=== PATIENT | male | born 1945 | race Caucasian/White ===

== ENCOUNTER 2021-10-02 06:01 | Outpatient (REF) | payer MEDICARE, SELFPAY ==
[2021-10-02 12:07] LABS: Alanine Aminotransferase 26 U/L (0-40); Albumin Level 4.1 g/dL (3.5-5.0); Alkaline Phosphatase 85 U/L (39-117); Anion Gap 15 (12-20); Aspartate Amino Transferase 18 U/L (5-37); Bilirubin Total 0.7 mg/dL (0.0-1.0); Blood Urea Nitrogen 13 mg/dL (9-16); Carbon Dioxide 26 mmol/L (22-29); Chloride 102 mmol/L (96-108); Cholesterol 136 mg/dL; Estimated Glomerular Filt Rate > 60; Glucose Fasting 137 mg/dL (60-99); HDL Cholesterol 38 mg/dL; LDL Cholesterol Calculated 83 mg/dl; Sodium 139 mmol/L (135-145); Total Protein 6.7 g/dL (6.5-8.0); Triglycerides 78 mg/dL
[2021-10-02 12:10] LABS: Prostate Specific Antigen Scr 1.09 ng/mL (<0.05-4.0); TSH reflex Free T4 6.15 uIU/mL (0.32-4.0)
== END 2021-10-02 06:02 | disposition home or self-care (01) ==
LOC: HO.HMGCLDS 06:01
PROVIDERS: PCP Nurse Practitioner Family; Visit Provider Nurse Practitioner Family
DX: Z00.00 Encounter for general adult medical examination without abnormal findings (principal); Z12.5 Encounter for screening for malignant neoplasm of prostate
CPT/HCPCS: 36415; 80053; 80061; 84153; 84439; 84443

== ENCOUNTER 2021-10-10 06:03 | Outpatient (REF) | payer MEDICARE, SELFPAY ==
[2021-10-10 11:51] LABS: Estimated Average Glucose 183 mg/dL
[2021-10-10 12:04] LABS: TSH reflex Free T4 3.78 uIU/mL (0.32-4.0)
[2021-10-13 17:02] LABS: Thyroid Peroxidase Antibodies 1 IU/mL (<9)
== END 2021-10-10 06:04 | disposition home or self-care (01) ==
LOC: HO.HMGCLDS 06:03
PROVIDERS: PCP Nurse Practitioner Family; Visit Provider Nurse Practitioner Family
DX: R73.01 Impaired fasting glucose (principal); R94.6 Abnormal results of thyroid function studies
CPT/HCPCS: 36415; 83036; 84443; 86376

== ENCOUNTER 2022-02-12 06:00 | Outpatient (REF) | payer MEDICARE, SELFPAY ==
[2022-02-12 11:31] LABS: Appearance Urine CLEAR; Color Urine YELLOW; Glucose Urine UA 100 MG/DL (NEG); Leukocyte Esterase Urine NEG (NEG); Nitrite Urine NEG (NEG); PH 5.5 (5.0-8.0); Specific Gravity - Urine >= 1.030 (1.005-1.025); Urine Blood NEG (NEG); Urine Ketones NEG (NEG); Urine Protein NEG (NEG-TRACE)
[2022-02-12 11:46] LABS: Alanine Aminotransferase 20 U/L (0-40); Albumin Level 3.9 g/dL (3.5-5.0); Alkaline Phosphatase 78 U/L (39-117); Anion Gap 10 (12-20); Aspartate Amino Transferase 17 U/L (5-37); Bilirubin Total 0.6 mg/dL (0.0-1.0); Blood Urea Nitrogen 22 mg/dL (9-16); Carbon Dioxide 28 mmol/L (22-29); Chloride 102 mmol/L (96-108); Cholesterol 138 mg/dL; Estimated Glomerular Filt Rate > 60; Glucose Fasting 158 mg/dL (60-99); HDL Cholesterol 36 mg/dL; LDL Cholesterol Calculated 87 mg/dl; Potassium 4.3 mmol/L (3.3-5.1); Sodium 136 mmol/L (135-145); Total Protein 6.6 g/dL (6.5-8.0); Triglycerides 76 mg/dL
[2022-02-12 11:49] LABS: TSH reflex Free T4 5.04 uIU/mL (0.32-4.0)
[2022-02-12 11:53] LABS: Estimated Average Glucose 174 mg/dL; Hemoglobin A1c % 7.7 %
[2022-02-12 11:58] LABS: Creatinine Urine 151.22 mg/dL; Microalbum/Creatinine Ratio Ur 8.5 ug/mg cr
[2022-02-12 13:16] LABS: Free T4 (Free Thyroxine) 0.89 ng/dL (0.71-1.85)
== END 2022-02-12 06:01 | disposition home or self-care (01) ==
LOC: HO.HMGCLDS 06:00
PROVIDERS: Visit Provider Nurse Practitioner Family
DX: Z00.00 Encounter for general adult medical examination without abnormal findings (principal); E11.9 Type 2 diabetes mellitus without complications
CPT/HCPCS: 36415; 80053; 80061; 81003; 82043; 83036; 84439; 84443

== ENCOUNTER 2022-07-21 06:00 | Outpatient (REF) | payer MEDICARE, SELFPAY ==
[2022-07-21 11:23] LABS: MANUAL DIFF FLAG NO
[2022-07-21 11:30] LABS: Basophils Percent Auto 0.7 % (0-2); Eosinophils Absolute Auto 0.1 X10*3/uL (0.0-0.4); Eosinophils Percent Auto 1.8 % (0-4); Hematocrit 45.4 % (42.0-52.0); Hemoglobin 14.6 g/dl (14.0-18.0); Imm Gran Abs Auto 0.02 X10*3/uL (0.00-0.03); Imm Gran Pct Auto 0.4 % (0.0-0.4); Lymphocytes Absolute Auto 1.3 X10*3/uL (1.2-4.9); Mean Corpuscular HGB Conc 32.2 g/dl (31.0-36.0); Mean Corpuscular Hemoglobin 31.5 pg (27.0-33.0); Mean Corpuscular Volume 98.1 fL (80.0-98.0); Mean Platelet Volume 11.7 fL (9.4-12.4); Monocytes Absolute Auto 0.6 X10*3/uL (0.1-1.2); Neutrophils Absolute Auto 3.5 x10*3/uL (2.0-8.3); Neutrophils Percent Auto 64.1 % (45-73); Platelet Count 227 X10*3/uL (160-400); Red Blood Count 4.63 X10*6/uL (4.60-5.80); Red Cell Distribution Width 13.3 % (11.0-16.0); White Blood Count 5.5 X10*3/uL (4.8-10.8)
[2022-07-21 11:56] LABS: Alanine Aminotransferase 15 U/L (0-40); Albumin Level 4.2 g/dL (3.5-5.0); Alkaline Phosphatase 80 U/L (39-117); Anion Gap 14 (12-20); Aspartate Amino Transferase 17 U/L (5-37); Bilirubin Total 0.7 mg/dL (0.0-1.0); Blood Urea Nitrogen 17 mg/dL (9-16); Calcium 9.1 mg/dL (8.4-10.2); Carbon Dioxide 27 mmol/L (22-29); Chloride 103 mmol/L (96-108); Cholesterol 140 mg/dL; Estimated Glomerular Filt Rate > 60; Glucose Fasting 119 mg/dL (60-99); HDL Cholesterol 41 mg/dL; LDL Cholesterol Calculated 82 mg/dl; Potassium 4.1 mmol/L (3.3-5.1); Sodium 140 mmol/L (135-145); Total Protein 6.6 g/dL (6.5-8.0); Triglycerides 86 mg/dL
[2022-07-21 12:00] LABS: Appearance Urine Clear; Color Urine Yellow; Glucose Urine UA Negative (Negative); Leukocyte Esterase Urine Small (1+) (Negative); Nitrite Urine Negative (Negative); PH 5.5 (5.0-9.0); Specific Gravity - Urine 1.025 (1.005-1.025); UMIC TRIGGER UACC YES; Urine Blood Negative (Negative); Urine Ketones Trace mg/dL (Negative); Urine Protein Negative (Neg-Trace)
[2022-07-21 12:07] LABS: TSH reflex Free T4 4.83 uIU/mL (0.32-4.0)
[2022-07-21 12:08] LABS: Estimated Average Glucose 146 mg/dL; Hemoglobin A1c % 6.7 %
[2022-07-21 12:27] LABS: Bacteria Urine None Seen (None Seen); Hyaline Casts Urine 0-2 /LPF (0-2); RBC Urine 0-2 /HPF (0-2); Squamous Epithelial Cell Urine 0-2 /HPF (0-2); UACC Culture Trigger YES; WBC Urine 0-5 /HPF (0-5)
== END 2022-07-21 06:01 | disposition home or self-care (01) ==
LOC: HO.HMGCLDS 06:00
PROVIDERS: PCP Nurse Practitioner Family; Visit Provider Nurse Practitioner Family
DX: E11.9 Type 2 diabetes mellitus without complications (principal)
CPT/HCPCS: 36415; 80053; 80061; 81001; 81003; 83036; 84439; 84443; 85025; 87086

== ENCOUNTER 2022-09-21 06:00 | Outpatient (REF) | payer MEDICARE, SELFPAY ==
[2022-09-21 13:02] LABS: TSH reflex Free T4 5.13 uIU/mL (0.32-4.0)
[2022-09-21 13:53] LABS: Free T4 (Free Thyroxine) 0.97 ng/dL (0.71-1.85)
[2022-09-23 04:01] LABS: Thyroid Peroxidase Antibodies 1 IU/mL (<9)
== END 2022-09-21 06:01 | disposition home or self-care (01) ==
LOC: HO.HMGCLDS 06:00
PROVIDERS: PCP Nurse Practitioner Family; Visit Provider Nurse Practitioner Family
DX: R79.89 Other specified abnormal findings of blood chemistry (principal)
CPT/HCPCS: 36415; 84439; 84443; 86376

== ENCOUNTER 2022-12-07 06:03 | Outpatient (REF) | payer MEDICARE, SELFPAY ==
[2022-12-07 11:21] LABS: Appearance Urine Clear; Color Urine Yellow; Glucose Urine UA Negative (Negative); Leukocyte Esterase Urine Small (1+) (Negative); Nitrite Urine Negative (Negative); PH 5.5 (5.0-9.0); Specific Gravity - Urine 1.015 (1.005-1.025); UMIC TRIGGER UACC YES; Urine Blood Negative (Negative); Urine Ketones Negative (Negative); Urine Protein Negative (Neg-Trace)
[2022-12-07 11:26] LABS: Bacteria Urine None Seen (None Seen); Hyaline Casts Urine 0-2 /LPF (0-2); RBC Urine 0-2 /HPF (0-2); Squamous Epithelial Cell Urine 0-2 /HPF (0-2); UACC Culture Trigger YES
[2022-12-07 11:36] LABS: MANUAL DIFF FLAG NO
[2022-12-07 11:47] LABS: Basophils Percent Auto 0.7 % (0-2); Eosinophils Absolute Auto 0.1 X10*3/uL (0.0-0.4); Eosinophils Percent Auto 1.4 % (0-4); Hematocrit 43.7 % (42.0-52.0); Hemoglobin 14.3 g/dl (14.0-18.0); Imm Gran Abs Auto 0.01 X10*3/uL (0.00-0.03); Imm Gran Pct Auto 0.2 % (0.0-0.4); Lymphocytes Absolute Auto 1.1 X10*3/uL (1.2-4.9); Lymphocytes Percent Auto 20.2 % (20-40); Mean Corpuscular HGB Conc 32.7 g/dl (31.0-36.0); Mean Corpuscular Hemoglobin 32.3 pg (27.0-33.0); Mean Corpuscular Volume 98.6 fL (80.0-98.0); Mean Platelet Volume 12.2 fL (9.4-12.4); Monocytes Absolute Auto 0.6 X10*3/uL (0.1-1.2); Monocytes Percent Auto 9.8 % (2-11); Neutrophils Absolute Auto 3.8 x10*3/uL (2.0-8.3); Neutrophils Percent Auto 67.7 % (45-73); Platelet Count 223 X10*3/uL (160-400); Red Blood Count 4.43 X10*6/uL (4.60-5.80); Red Cell Distribution Width 13.2 % (11.0-16.0); White Blood Count 5.6 X10*3/uL (4.8-10.8)
[2022-12-07 12:40] LABS: Alanine Aminotransferase 16 U/L (0-40); Albumin Level 3.9 g/dL (3.5-5.0); Alkaline Phosphatase 80 U/L (39-117); Anion Gap 13 (12-20); Aspartate Amino Transferase 15 U/L (5-37); Blood Urea Nitrogen 17 mg/dL (9-16); Calcium 8.8 mg/dL (8.4-10.2); Carbon Dioxide 27 mmol/L (22-29); Chloride 104 mmol/L (96-108); Cholesterol 142 mg/dL; Estimated Glomerular Filt Rate > 60; Glucose Fasting 110 mg/dL (60-99); HDL Cholesterol 45 mg/dL; LDL Cholesterol Calculated 86 mg/dl; Sodium 140 mmol/L (135-145); TSH reflex Free T4 5.53 uIU/mL (0.32-4.0); Total Protein 6.3 g/dL (6.5-8.0); Triglycerides 59 mg/dL
[2022-12-07 13:11] LABS: Free T4 (Free Thyroxine) 0.91 ng/dL (0.71-1.85)
== END 2022-12-07 06:04 | disposition home or self-care (01) ==
LOC: HO.HMGCLDS 06:03
PROVIDERS: PCP Nurse Practitioner Family; Visit Provider Nurse Practitioner Family
DX: Z12.5 Encounter for screening for malignant neoplasm of prostate (principal); E11.9 Type 2 diabetes mellitus without complications; R82.90 Unspecified abnormal findings in urine
CPT/HCPCS: 36415; 80053; 80061; 81001; 84153; 84439; 84443; 85025; 87086

== ENCOUNTER 2023-04-05 06:05 | Outpatient (REF) | payer MEDICARE, SELFPAY ==
[2023-04-05 11:12] LABS: MANUAL DIFF FLAG NO
[2023-04-05 11:28] LABS: Appearance Urine Clear; Color Urine Yellow; Glucose Urine UA Negative (Negative); Leukocyte Esterase Urine Small (1+) (Negative); Nitrite Urine Negative (Negative); PH 5.5 (5.0-9.0); Specific Gravity - Urine 1.025 (1.005-1.025); UMIC TRIGGER UACC YES; Urine Blood Negative (Negative); Urine Ketones Negative (Negative); Urine Protein Negative (Neg-Trace)
[2023-04-05 11:31] LABS: Basophils Percent Auto 0.8 % (0-2); Eosinophils Absolute Auto 0.1 X10*3/uL (0.0-0.4); Eosinophils Percent Auto 1.7 % (0-4); Hematocrit 41.6 % (42.0-52.0); Hemoglobin 13.5 g/dl (14.0-18.0); Imm Gran Abs Auto 0.05 X10*3/uL (0.00-0.03); Imm Gran Pct Auto 1.1 % (0.0-0.4); Lymphocytes Percent Auto 21.8 % (20-40); Mean Corpuscular HGB Conc 32.5 g/dl (31.0-36.0); Mean Corpuscular Volume 98.6 fL (80.0-98.0); Mean Platelet Volume 11.9 fL (9.4-12.4); Monocytes Absolute Auto 0.5 X10*3/uL (0.1-1.2); Monocytes Percent Auto 11.4 % (2-11); Neutrophils Percent Auto 63.2 % (45-73); Platelet Count 191 X10*3/uL (160-400); Red Blood Count 4.22 X10*6/uL (4.60-5.80); Red Cell Distribution Width 13.9 % (11.0-16.0); White Blood Count 4.7 X10*3/uL (4.8-10.8)
[2023-04-05 11:40] LABS: Bacteria Urine None Seen (None Seen); Hyaline Casts Urine 0-2 /LPF (0-2); RBC Urine 0-2 /HPF (0-2); Squamous Epithelial Cell Urine 0-2 /HPF (0-2); UACC Culture Trigger YES; WBC Urine 0-5 /HPF (0-5)
[2023-04-05 12:06] LABS: Alanine Aminotransferase 10 U/L (0-40); Albumin Level 3.8 g/dL (3.5-5.0); Alkaline Phosphatase 66 U/L (39-117); Anion Gap 11 (12-20); Aspartate Amino Transferase 16 U/L (5-37); Bilirubin Total 1.1 mg/dL (0.0-1.0); Blood Urea Nitrogen 18 mg/dL (9-16); Calcium 8.8 mg/dL (8.4-10.2); Carbon Dioxide 28 mmol/L (22-29); Chloride 105 mmol/L (96-108); Cholesterol 128 mg/dL; Estimated Glomerular Filt Rate > 60; Glucose Fasting 107 mg/dL (60-99); HDL Cholesterol 43 mg/dL; LDL Cholesterol Calculated 76 mg/dl; Potassium 3.8 mmol/L (3.3-5.1); Sodium 140 mmol/L (135-145); Total Protein 6.2 g/dL (6.5-8.0); Triglycerides 48 mg/dL
[2023-04-05 12:08] LABS: TSH reflex Free T4 3.78 uIU/mL (0.32-4.0)
[2023-04-05 12:13] LABS: Microalbum/Creatinine Ratio Ur 7.7 ug/mg cr
== END 2023-04-05 06:06 | disposition home or self-care (01) ==
LOC: HO.HMGCLDS 06:05
PROVIDERS: PCP Nurse Practitioner Family; Visit Provider Nurse Practitioner Family
DX: E11.9 Type 2 diabetes mellitus without complications (principal); R79.89 Other specified abnormal findings of blood chemistry; D64.9 Anemia, unspecified; R82.90 Unspecified abnormal findings in urine
CPT/HCPCS: 36415; 80053; 80061; 81001; 82043; 84443; 85025; 87086

== ENCOUNTER 2023-04-21 06:01 | Outpatient (REF) | payer MEDICARE, SELFPAY ==
[2023-04-21 11:16] LABS: MANUAL DIFF FLAG NO
[2023-04-21 11:26] LABS: Basophils Absolute Auto 0.1 X10*3/uL (0.0-0.2); Basophils Percent Auto 0.9 % (0-2); Eosinophils Absolute Auto 0.1 X10*3/uL (0.0-0.4); Eosinophils Percent Auto 1.4 % (0-4); Hematocrit 42.6 % (42.0-52.0); Hemoglobin 13.9 g/dl (14.0-18.0); Imm Gran Abs Auto 0.02 X10*3/uL (0.00-0.03); Imm Gran Pct Auto 0.4 % (0.0-0.4); Immature Retic Fraction 10.9 % (2.3-13.4); Lymphocytes Percent Auto 18.8 % (20-40); Mean Corpuscular HGB Conc 32.6 g/dl (31.0-36.0); Mean Corpuscular Hemoglobin 32.6 pg (27.0-33.0); Mean Platelet Volume 12.4 fL (9.4-12.4); Monocytes Absolute Auto 0.5 X10*3/uL (0.1-1.2); Monocytes Percent Auto 9.1 % (2-11); Neutrophils Absolute Auto 3.8 x10*3/uL (2.0-8.3); Neutrophils Percent Auto 69.4 % (45-73); Platelet Count 207 X10*3/uL (160-400); Red Blood Count 4.26 X10*6/uL (4.60-5.80); Retic HGB Equivalent 37.6 pg (30.0-35.0); Reticulocyte Percent 1.5 % (0.5-1.8); Reticulocytes Absolute 0.062 X10*6/uL (0.026-0.095); White Blood Count 5.5 X10*3/uL (4.8-10.8)
[2023-04-21 11:53] LABS: Iron 109 mcg/dL (45-160); Percent Iron Saturation 43 % (15-50); Total Iron Binding Capacity 251 mcg/dL (228-428); Unsaturated Iron Binding 142 ug/dL
[2023-04-21 12:08] LABS: Folate 8.2 ng/mL (> or = 4.0); Vitamin B12 324 pg/mL (200-900)
[2023-04-21 12:12] LABS: Ferritin 121 ng/mL (20-250)
== END 2023-04-21 06:02 | disposition home or self-care (01) ==
LOC: HO.HMGCLDS 06:01
PROVIDERS: PCP Nurse Practitioner Family; Visit Provider Nurse Practitioner Family
DX: D64.9 Anemia, unspecified (principal); E11.9 Type 2 diabetes mellitus without complications; R79.89 Other specified abnormal findings of blood chemistry
CPT/HCPCS: 36415; 82607; 82728; 82746; 83540; 85025; 85045

== ENCOUNTER 2023-08-18 13:26 | Outpatient (AMB) | payer MEDICARE, SELFPAY ==
--- NOTE | 2023-08-18 13:31 | MHC.PC.OV ---
Vital Signs 08/18/23 13:35 Height 5 ft 11 in Weight 187 lb BMI 26.1 BP 108/64 Blood Pressure Location Rt brachial Position Sitting Pulse 110 H Pulse Source Pulse Oximeter Pulse Oximetry (%) 100 Oxygen Delivery Method Room Air Intake Visit Reasons: PE/overdue, last 02/11/22 Allergies No Known Allergies Allergy (Verified 08/18/23 13:35) Medication List - Last Reviewed 08/18/23 by CARLOS MANUEL Cade Alcohol Prep Pads (alcohol swabs) topical 3 to 4 times a day; 12 months NS alcohol swabs (Alcohol Prep Pads) 1 pad topical BID 90 days aspirin 81 mg PO DAILY atorvastatin 80 mg PO DAILY blood sugar diagnostic ([employer] Verio test strips) Use to check blood sugar twice daily: fasting blood sugar and random during the day blood-glucose meter ([employer] Verio IQ Meter) Use to check blood sugar twice daily: fasting blood sugar and random during the day lancets ([employer] Delica Plus Lancet) USE TO CHECK BLOOD SUGAR TWICE DAILY lisinopril 10 mg PO DAILY 90 days metformin ER 500 mg PO BID 90 days metoprolol tartrate 12.5 mg (1/2 x 25 mg) PO BID warfarin 2.5 mg PO 3XW Tobacco use date assessed: 03/25/23 Fall risk assessment: No Falls in past year Last assessed Fall Risk: 08/18/23 Dental Screening Dental Screen Date: 08/18/23 Did you have a dental visit in the last 12 months?: No Did you have a dental problem in the last 6 months where you did not have access to dental care?: No Was dental information given to patient?: No HPI PE/overdue, last 02/11/22 HPI Details Pt is here for a PE. Will order labs. PSA is up to date. Pt is a diabetic, on an OMER and a statin. A1C in office today is 6.5. Microalbumin is up to date. Denies polyuria, polydipsia, and neuropathy. Pt denies any signs and symptoms of hypoglycemia and does know how to correct it. Pt reports that his blood sugar has been around 104. Pt reports swelling of his bilat feet that he noticed earlier this week. He also reports shortness of breath with exertion. Will order BNP, TSH, CMP, CBC, and chest XR. Will also send furosemide 20mg x5 days. Pt has an echo scheduled for 08/23. Pt last saw his experimental worker last week. They are aware of his RVR and increased his metoprolol to 50mg bid. HR today is 110, according to note from cardiology his pulse was similar. Pt is in no acute distress. After speaking with pt's experimental worker I am sending pt to the ER, report called in. [facility] Medical History Arthritis CAD (coronary artery disease) Hypertension Left leg injury Surgical History S/P drug eluting coronary stent placement Hx of tonsillectomy Family History Mother Cancer Social History Housing: Apartment Alcohol intake: former Patient Tobacco Use Status: Former Tobacco user Years Smoked: 4 yrs e-Cigarette/Vaping Use: Never Used Second Hand Smoke Exposure: No service: No Current occupational status: retired Cognitive needs: No Hearing needs: No Vision needs: No Questionnaire Thrive Questionnaire Date Thrive assessed: 11/23/22 HAROON-7 AMB Questionnaire HAROON-7 Date HAROON - 7 assessed: 11/23/22 Source: Developed by Drs. Yaakov Marti, Dawna Buckley, Virgilio Lepe and colleagues, with an educational pb from [employer]. Review of Systems Const Denies chills and Denies fever(s) Eyes Denies blurry vision ENT Denies vertigo, Denies dizziness and Denies sore throat Card Denies chest pain at rest, Denies chest pain with activity, Denies diaphoresis, Denies dyspnea and Denies dyspnea on exertion Resp Denies cough, Denies dyspnea, Denies dyspnea on exertion and Denies wheezing GI Denies abdominal pain, Denies melena, Denies hematochezia, Denies constipation, Denies diarrhea and Denies loose stools Denies hematuria Musc Denies numbness and Denies tingling Skin/Breast Denies lesions Neuro Denies vertigo, Denies dizziness, Denies numbness and Denies tingling Psych Denies anxiety, Denies depression, Denies homicidal ideation, Denies suicidal ideation and Denies other (substance abuse) Aller/Immun Denies wheezing Physical exam (Primary Care) Vital Signs: Last Vital Signs Pulse 110 H 08/18/23 13:35 BP 108/64 08/18/23 13:35 Pulse Ox 100 08/18/23 13:35 Oxygen Delivery Method Room Air 08/18/23 13:35 BMI result Body Mass Index 26.1 Tobacco/Smoking Status: Tobacco use Status Tobacco use date assessed 03/25/23 08/18/23 13:32 Patient Tobacco Use Status Former Tobacco user 08/18/23 13:32 e-Cigarette/Vaping Use Never Used 08/18/23 13:32 Thrive Assessment: Date of Thrive Assessment Date Thrive assessed 11/23/22 08/18/23 13:32 Const General: cooperative Nutritional Appearance: well nourished Orientation/consciousness: patient oriented x3 HENMT Head: Yes normal to inspection, Yes normocephalic and Yes atraumatic Ears: TM's normal bilaterally Eyes General: appearance normal, both eyes and all related structures Alignment and Position: alignment normal and position normal Neck Neck: Yes normal visual inspection and Yes no lymphadenopathy Thyroid: Thyroid normal Resp Effort & Inspection: normal respiratory effort Auscultation: clear to auscultation bilaterally Cardio Rate: tachycardic (RVR) Rhythm: abnormal rhythm irregularly irregular Heart sounds: no murmurs GI Palpation (GI): Soft to palpation and nontender Auscultation: normal bowel sounds Skin Rashes: no rashes Neuro General: patient oriented x3, moves all extremities, no focal motor deficits and deep tendon reflexes 2+ bilaterally Romberg Test: Negative Extrem Other: + 1 pitting BLE Psych Appearance: grossly normal Mental Status: mental status grossly normal Speech and movement: Normal speech and movement present Affect: normal affect Attitude: cooperative Thought process: Normal thought process present Thought content: Normal thought content present Insight: Good insight present (Psych) Judgement: Good judgement present (Psych) Results AMB Hemoglobin A1c AMB Hemoglobin A1c 6.5 % Last Edit by CARLOS MANUEL Cade on 08/18/23 13:54 Results Reviewed Results Reviewed: Laboratory Last Values Hgb A1c (Clinic) 6.5 % (4.0-6.0) H 08/18/23 13:53 Assessment and Plan Assessment & Plan (1) Physical exam: Code(s): Z00.00 - Encounter for general adult medical examination without abnormal findings Plan: Labs ordered (2) Swelling of both lower extremities: Code(s): M79.89 - Other specified soft tissue disorders Plan: Labs and chest XR ordered, lasix sent, sending to ER (3) SOB (shortness of breath): Code(s): R06.02 - Shortness of breath Plan: Labs and chest XR ordered, furosemide sent, sending to ER (4) Overgrown toenails: Code(s): L60.2 - Onychogryphosis Plan: Referred to podiatry Plan The patient agreed to the use of a medical billing coordinator for this encounter. Scribed for BASSAM Zhao by Alissa Kent medical billing coordinator, on 08/18/2023 at 13:45 EST Orders: Orders Comprehensive [place]. Panel Fast Today Z00.00 - Encounter for general adult medical examination without abnormal findings TSH reflex Free T4 Today Z00.00 - Encounter for general adult medical examination without abnormal findings UA CC w/rflx Micro + Cult Today Z00.00 - Encounter for general adult medical examination without abnormal findings Lipid Panel Today Z00.00 - Encounter for general adult medical examination without abnormal findings XR chest 2V Today M79.89 - Other specified soft tissue disorders, R06.02 - Shortness of breath Complete Blood Count Auto Diff Today Z00.00 - Encounter for general adult medical examination without abnormal findings B Type Natriuretic Peptide Today M79.89 - Other specified soft tissue disorders AMB Hemoglobin A1c Today Z13.9 - Encounter for screening, unspecified Referrals Podiatry Referral L60.2 - Onychogryphosis Medications: New furosemide 20 mg PO DAILY 5 days 5 tabs 0RF Coding Level of Care Code Est Pt Prev Care >65y(51918) Diagnoses Physical exam Z00.00 Swelling of both lower extremities M79.89 SOB (shortness of breath) R06.02 Overgrown toenails L60.2
[2023-08-18 13:35] VITALS: BP 108/64; PULSE 110; O2SAT 100; BMI 26.1
== END 2023-08-18 14:37 | disposition home or self-care (01) ==
PROVIDERS: PCP Nurse Practitioner Family; Visit Provider Nurse Practitioner Family
DX: Z00.00 Encounter for general adult medical examination without abnormal findings (principal); M79.89 Other specified soft tissue disorders; R06.02 Shortness of breath; L60.2 Onychogryphosis; E11.9 Type 2 diabetes mellitus without complications
CPT/HCPCS: 83036; 99397

== ENCOUNTER 2023-08-18 14:48 | Outpatient (REF) | payer MEDICARE, SELFPAY ==
--- NOTE | ~2023-08-18 | XR_ITS ---
EXAMINATION: XR CHEST CLINICAL INFORMATION: Other specified soft tissue disorders. COMPARISON: None available. TECHNIQUE: Frontal and lateral views of the chest were obtained. FINDINGS: The heart, great vessels, pulmonary vasculature and mediastinum are stable. There are small to moderate bilateral pleural effusions. No infiltrate, effusion or pneumothorax is seen. There is no acute osseous abnormalities. XR/XR chest 2V IMPRESSION: 1. There are small to moderate bilateral pleural effusions. 2. No focal infiltrate or congestive heart failure is seen.
[2023-08-18 15:06] LABS: MANUAL DIFF FLAG NO
[2023-08-18 15:56] LABS: B Type Natriuretic Peptide 433 pg/mL (<100)
[2023-08-18 15:57] LABS: Basophils Absolute Auto 0.1 X10*3/uL (0.0-0.2); Basophils Percent Auto 1.3 % (0-2); Eosinophils Absolute Auto 0.1 X10*3/uL (0.0-0.4); Eosinophils Percent Auto 1.1 % (0-4); Imm Gran Abs Auto 0.02 X10*3/uL (0.00-0.03); Imm Gran Pct Auto 0.3 % (0.0-0.4); Lymphocytes Absolute Auto 1.1 X10*3/uL (1.2-4.9); Lymphocytes Percent Auto 17.6 % (20-40); Mean Corpuscular HGB Conc 32.6 g/dl (31.0-36.0); Mean Corpuscular Hemoglobin 32.3 pg (27.0-33.0); Mean Corpuscular Volume 98.9 fL (80.0-98.0); Mean Platelet Volume 11.9 fL (9.4-12.4); Monocytes Absolute Auto 0.7 X10*3/uL (0.1-1.2); Monocytes Percent Auto 11.3 % (2-11); Neutrophils Absolute Auto 4.4 x10*3/uL (2.0-8.3); Neutrophils Percent Auto 68.4 % (45-73); Platelet Count 239 X10*3/uL (160-400); Red Blood Count 4.65 X10*6/uL (4.60-5.80); Red Cell Distribution Width 15.1 % (11.0-16.0); White Blood Count 6.4 X10*3/uL (4.8-10.8)
[2023-08-18 16:00] LABS: Alanine Aminotransferase 44 U/L (0-40); Albumin Level 4.2 g/dL (3.5-5.0); Alkaline Phosphatase 108 U/L (39-117); Anion Gap 16 (12-20); Aspartate Amino Transferase 31 U/L (5-37); Bilirubin Total 1.2 mg/dL (0.0-1.0); Blood Urea Nitrogen 17 mg/dL (9-16); Calcium 9.2 mg/dL (8.4-10.2); Carbon Dioxide 21 mmol/L (22-29); Chloride 105 mmol/L (96-108); Cholesterol 116 mg/dL (<200); Estimated Glomerular Filt Rate > 60; Glucose Fasting 132 mg/dL (60-99); HDL Cholesterol 44 mg/dL (>40); LDL Cholesterol Calculated 59 mg/dL (<100); Potassium 4.2 mmol/L (3.3-5.1); Sodium 138 mmol/L (135-145); Total Protein 7.1 g/dL (6.5-8.0); Triglycerides 66 mg/dL (<150)
[2023-08-18 16:14] LABS: TSH reflex Free T4 4.57 uIU/mL (0.32-4.0)
[2023-08-18 16:48] LABS: Free T4 (Free Thyroxine) 1.05 ng/dL (0.71-1.85)
== END 2023-08-18 14:49 | disposition home or self-care (01) ==
LOC: HO.LAB 14:48
PROVIDERS: PCP Nurse Practitioner Family; Visit Provider Nurse Practitioner Family
DX: Z00.00 Encounter for general adult medical examination without abnormal findings (principal); M79.89 Other specified soft tissue disorders; R06.02 Shortness of breath; R94.6 Abnormal results of thyroid function studies
CPT/HCPCS: 36415; 71046; 80053; 80061; 83880; 84439; 84443; 85025

== ENCOUNTER 2023-09-28 14:41 | Outpatient (AMB) | payer MEDICARE, SELFPAY ==
--- NOTE | 2023-09-28 14:44 | MHC.PC.OV ---
Vital Signs 09/28/23 14:46 Height 5 ft 11 in Weight 157 lb BMI 21.9 BP 118/72 Blood Pressure Location Rt brachial Position Sitting Pulse 58 Pulse Source Pulse Oximeter Pulse Oximetry (%) 100 Oxygen Delivery Method Room Air Intake Visit Reasons: HDF ~ Post hospital discharge FU Allergies No Known Allergies Allergy (Verified 09/28/23 15:24) Medication List - Last Reconciled 09/28/23 by SERGIO Banda- Alcohol Prep Pads (alcohol swabs) topical 3 to 4 times a day; 12 months NS alcohol swabs (Alcohol Prep Pads) 1 pad topical BID 90 days aspirin 81 mg PO DAILY atorvastatin 80 mg PO DAILY blood sugar diagnostic ([employer] Verio test strips) Use to check blood sugar twice daily: fasting blood sugar and random during the day blood-glucose meter ([employer] Verio IQ Meter) Use to check blood sugar twice daily: fasting blood sugar and random during the day furosemide 40 mg PO DAILY lancets ([employer]Touch Delica Plus Lancet) USE TO CHECK BLOOD SUGAR TWICE DAILY losartan 12.5 mg PO DAILY metformin ER 500 mg PO BID 90 days metoprolol succinate ER 50 mg PO DAILY warfarin 2.5 mg PO 3XW Tobacco use date assessed: 03/25/23 HPI HDF ~ Post hospital discharge FU HPI Details Pt was seen in the ER on 08/19 c/o shortness of breath and lower extremity edema. Pt's presentation was concerning for new onset CHF, volume overload. Bedside US showed evidence of bilat pleural effusions as well as a dilated IVC consistent with volume overload. Pt was given IV diuretics and metoprolol. EKG showed afib with RVR, rate 127. Chest XR showed normal cardiac silhouette, blunting of the costophrenic angles with bilat pleural effusions. proBNP was elevated at 2700. Troponin was elevated at 21, likely elevated in the setting of demand ischemia. Heart rate improved after IV and PO metoprolol. Echo showed EF of 25-35%. Pt underwent cardioversion on 08/23 with reversion to NSR meds titrated accordingly. Low doses of beta-sharan and ARB were started, plan to uptitrate and transition to entresto outpatient. Pt's hospital course was complicated by LISSETTE likely in setting of edema, resolved with lasix. Course was also complicated by acute urinary retention. Urology was consulted and a felder was placed. He was started on flomax and pyridoxine. Pt was d/c with felder with instructions to follow up with urology. Cytology was also sent. Pt was d/c on metoprolol, losartan, lasix, and lovenox. Pt's lisinopril was stopped. He will be following up with cardiology on 10/05. Pt is also following up with urology. He denies any urinary symptoms. Denies fever, chills, chest pain, and shortness of breath. He reports feeling well, and his watching his weight at home. Will await follow up notes from cardiology [facility] Medical History Arthritis CAD (coronary artery disease) Hypertension Left leg injury Surgical History S/P drug eluting coronary stent placement Hx of tonsillectomy Family History Mother Cancer Social History Housing: Apartment Alcohol intake: former Patient Tobacco Use Status: Former Tobacco user Years Smoked: 4 yrs e-Cigarette/Vaping Use: Never Used Second Hand Smoke Exposure: No service: No Current occupational status: retired Cognitive needs: No Hearing needs: No Vision needs: No Questionnaire Thrive Questionnaire Date Thrive assessed: 11/23/22 HAROON-7 AMB Questionnaire HAROON-7 Date HAROON - 7 assessed: 11/23/22 Source: Developed by Drs. Yaakov Marti, Dawna Buckley, Virgilio Lepe and colleagues, with an educational pb from [employer]. Review of Systems Const Reports as per HPI Physical exam (Primary Care) Vital Signs: Last Vital Signs Pulse 58 09/28/23 14:46 BP 118/72 09/28/23 14:46 Pulse Ox 100 09/28/23 14:46 Oxygen Delivery Method Room Air 09/28/23 14:46 BMI result Body Mass Index 21.9 Tobacco/Smoking Status: Tobacco use Status Tobacco use date assessed 03/25/23 09/28/23 14:45 Patient Tobacco Use Status Former Tobacco user 09/28/23 14:45 e-Cigarette/Vaping Use Never Used 09/28/23 14:45 Thrive Assessment: Date of Thrive Assessment Date Thrive assessed 11/23/22 09/28/23 14:45 Const General: cooperative Orientation/consciousness: patient oriented x3 Resp Other: very faint crackle to right base, otherwise fairly clear throughout Effort & Inspection: normal respiratory effort Cardio Rate: regular rate Rhythm: regular rhythm Heart sounds: S1 normal heart sound present and S2 normal heart sound present Neuro General: patient oriented x3 Extrem Right lower extremity: no edema Left lower extremity: no edema Psych Appearance: grossly normal Mental Status: mental status grossly normal Speech and movement: Normal speech and movement present Affect: normal affect Attitude: cooperative Thought process: Normal thought process present Thought content: Normal thought content present Insight: Good insight present (Psych) Judgement: Good judgement present (Psych) Assessment and Plan Assessment & Plan (1) CHF (congestive heart failure): Code(s): I50.9 - Heart failure, unspecified Plan: Labs ordered, following up with cardiology next week (2) Afib: Code(s): I48.91 - Unspecified atrial fibrillation Plan: Labs ordered Plan The patient agreed to the use of a medical staff services manager for this encounter. Scribed for BASSAM Zhao by Alissa Kent medical staff services manager, on 09/28/2023 at 15:20 EST. Orders: Orders Complete Blood Count Auto Diff Today I48.91 - Unspecified atrial fibrillation, I50.9 - Heart failure, unspecified UA CC w/rflx Micro + Cult Today I48.91 - Unspecified atrial fibrillation, I50.9 - Heart failure, unspecified B Type Natriuretic Peptide Today I48.91 - Unspecified atrial fibrillation, I50.9 - Heart failure, unspecified Comprehensive [place]. Panel Today I48.91 - Unspecified atrial fibrillation, I50.9 - Heart failure, unspecified TSH reflex Free T4 Today I48.91 - Unspecified atrial fibrillation, I50.9 - Heart failure, unspecified Medications: Discontinued metoprolol tartrate Discontinued Reason: Doctor's Order 50 mg PO BID Coding Level of Care Code Est Pt Level 4 (00298) Diagnoses CHF (congestive heart failure) I50.9 Afib I48.91
[2023-09-28 14:46] VITALS: BP 118/72; PULSE 58; O2SAT 100; BMI 21.9
== END 2023-09-28 16:57 | disposition home or self-care (01) ==
PROVIDERS: PCP Nurse Practitioner Family; Visit Provider Nurse Practitioner Family
DX: I50.9 Heart failure, unspecified (principal); I48.91 Unspecified atrial fibrillation
CPT/HCPCS: 99214

== ENCOUNTER 2023-09-29 12:18 | Outpatient (REF) | payer MEDICARE, SELFPAY ==
[2023-09-29 13:08] LABS: MANUAL DIFF FLAG NO
[2023-09-29 13:38] LABS: Basophils Absolute Auto 0.1 X10*3/uL (0.0-0.2); Eosinophils Absolute Auto 0.1 X10*3/uL (0.0-0.4); Eosinophils Percent Auto 1.3 % (0-4); Hematocrit 41.7 % (42.0-52.0); Hemoglobin 13.6 g/dl (14.0-18.0); Imm Gran Abs Auto 0.02 X10*3/uL (0.00-0.03); Imm Gran Pct Auto 0.3 % (0.0-0.4); Lymphocytes Absolute Auto 1.2 X10*3/uL (1.2-4.9); Lymphocytes Percent Auto 20.1 % (20-40); Mean Corpuscular HGB Conc 32.6 g/dl (31.0-36.0); Mean Corpuscular Hemoglobin 31.9 pg (27.0-33.0); Mean Corpuscular Volume 97.9 fL (80.0-98.0); Mean Platelet Volume 11.8 fL (9.4-12.4); Monocytes Absolute Auto 0.6 X10*3/uL (0.1-1.2); Monocytes Percent Auto 8.9 % (2-11); Neutrophils Absolute Auto 4.2 x10*3/uL (2.0-8.3); Neutrophils Percent Auto 68.4 % (45-73); Platelet Count 226 X10*3/uL (160-400); Red Blood Count 4.26 X10*6/uL (4.60-5.80); Red Cell Distribution Width 13.8 % (11.0-16.0); White Blood Count 6.2 X10*3/uL (4.8-10.8)
[2023-09-29 14:12] LABS: B Type Natriuretic Peptide 115 pg/mL (<100)
[2023-09-29 14:17] LABS: Alanine Aminotransferase 16 U/L (0-40); Alkaline Phosphatase 66 U/L (39-117); Anion Gap 13 (12-20); Aspartate Amino Transferase 22 U/L (5-37); Bilirubin Total 0.7 mg/dL (0.0-1.0); Blood Urea Nitrogen 18 mg/dL (9-16); Calcium 8.8 mg/dL (8.4-10.2); Carbon Dioxide 30 mmol/L (22-29); Chloride 101 mmol/L (96-108); Estimated Glomerular Filt Rate > 60; Glucose Random 172 mg/dL (60-115); Potassium 3.4 mmol/L (3.3-5.1); Sodium 141 mmol/L (135-145)
[2023-09-29 14:23] LABS: TSH reflex Free T4 4.77 uIU/mL (0.32-4.0)
[2023-09-29 15:00] LABS: Free T4 (Free Thyroxine) 0.86 ng/dL (0.71-1.85)
[2023-09-29 16:25] LABS: Appearance Urine Clear; Color Urine Yellow; Glucose Urine UA Negative (Negative); Leukocyte Esterase Urine Trace (Negative); Nitrite Urine Negative (Negative); UMIC TRIGGER UACC YES; Urine Blood Negative (Negative); Urine Ketones Negative (Negative); Urine Protein Negative (Neg-Trace)
[2023-09-29 16:29] LABS: Bacteria Urine None Seen (None Seen); Hyaline Casts Urine 0-2 /LPF (0-2); RBC Urine 0-2 /HPF (0-2); Squamous Epithelial Cell Urine 0-2 /HPF (0-2); WBC Urine 0-5 /HPF (0-5)
== END 2023-09-29 12:19 | disposition home or self-care (01) ==
LOC: HO.HMGCLDS 12:18
PROVIDERS: PCP Nurse Practitioner Family; Visit Provider Nurse Practitioner Family
DX: I48.91 Unspecified atrial fibrillation (principal); I50.9 Heart failure, unspecified
CPT/HCPCS: 36415; 80053; 81001; 83880; 84439; 84443; 85025

== ENCOUNTER 2023-11-18 13:45 | Outpatient (AMB) | payer MEDICARE, SELFPAY ==
--- NOTE | 2023-11-18 13:52 | MHC.PC.OV ---
Vital Signs 11/18/23 13:53 Height 5 ft 11 in Weight 170 lb 4 oz BMI 23.7 BP 110/72 Blood Pressure Location Rt brachial Position Sitting Pulse 50 Pulse Source Pulse Oximeter Pulse Oximetry (%) 98 Oxygen Delivery Method Room Air Intake Visit Reasons: 3 Month follow up Intake Note: Pt is here to go lab results Allergies No Known Allergies Allergy (Verified 11/18/23 13:55) Medication List - Last Reconciled 11/18/23 by BASSAM Banda Alcohol Prep Pads (alcohol swabs) topical 3 to 4 times a day; 12 months NS alcohol swabs (Alcohol Prep Pads) 1 pad topical BID 90 days aspirin 81 mg PO DAILY atorvastatin 80 mg PO DAILY blood sugar diagnostic ([employer] Verio test strips) Use to check blood sugar twice daily: fasting blood sugar and random during the day blood-glucose meter ([employer] Verio IQ Meter) Use to check blood sugar twice daily: fasting blood sugar and random during the day furosemide 20 mg PO Q OTHER DAY lancets ([employer] Delica Plus Lancet) USE TO CHECK BLOOD SUGAR TWICE DAILY losartan 12.5 mg PO DAILY metformin ER 500 mg PO BID 90 days metoprolol succinate ER 50 mg PO DAILY warfarin 2.5 mg PO 3XW Tobacco use date assessed: 11/18/23 Fall risk assessment: No Falls in past year Last assessed Fall Risk: 11/18/23 Dental Screening Dental Screen Date: 11/18/23 Did you have a dental visit in the last 12 months?: No Did you have a dental problem in the last 6 months where you did not have access to dental care?: No Was dental information given to patient?: No HPI 3 Month follow up HPI Details Pt is a diabetic, on an ARB and a statin. A1C in office today is 6.6. Microalbumin is up to date. Denies polyuria, polydipsia, and neuropathy. Pt denies any signs and symptoms of hypoglycemia and does know how to correct it. Eye exam is scheduled. Pt has an appointment scheduled with podiatry. [facility] Medical History Arthritis CAD (coronary artery disease) Hypertension Left leg injury Surgical History S/P drug eluting coronary stent placement Hx of tonsillectomy Family History Mother Cancer Social History Housing: Apartment Alcohol intake: former Patient Tobacco Use Status: Former Tobacco user Years Smoked: 4 yrs e-Cigarette/Vaping Use: Never Used Second Hand Smoke Exposure: No service: No Current occupational status: retired Cognitive needs: No Hearing needs: No Vision needs: No Questionnaire PHQ-9 Over the last 2 weeks, how often have you been bothered by any of the following problems? 1. Little interest or pleasure in doing things: not at all 2. Feeling down, depressed, or hopeless: not at all 3. Trouble falling or staying asleep, or sleeping too much: not at all 4. Feeling tired or having little energy: not at all 5. Poor appetite or overeating: not at all 6. Feeling bad about yourself - or that you are a failure or have let yourself or your family down: not at all 7. Trouble concentrating on things, such as reading the newspaper or watching television: not at all 8. Moving or speaking so slowly that other people could have noticed. Or the opposite - being so fidgety or restless that you have been moving around a lot more than usual: not at all 9. Thoughts that you would be better off or of hurting yourself in some way: not at all Total score: 0 Source: Developed by Drs. Yaakov Marti, Dawna Buckley, Virgilio Lepe and colleagues, with an educational pb from [employer]. Thrive Questionnaire Date Thrive assessed: 11/18/23 I am a: Patient What is your living situation today?: I have a steady place to live Within the past 12 months, did the food you bought not last and you didn't have the money to get more?: Never true Within the past 12 months, did you worry whether your food would run out before you got money to buy more?: Never true Do you have trouble paying for medicines?: No Do you have trouble getting transportation to medical appointments?: No Do you have trouble paying your heating and electricity bill?: No Do you have trouble taking care of your child, family member or friend?: No Do you have trouble with day-to-day activities such as bathing, preparing meals, shopping, managing finances, etc.?: No Are you currently unemployed and looking for a job?: No Are you interested in more education?: No THRIVE Score: 0 AUDIT C Alcohol Use Questionnaire (AUDIT-C) 1. How often do you have a drink containing alcohol?: Never Total Score: 0 Score Reviewed/Action Taken: Yes HAROON-7 AMB Questionnaire HAROON-7 Date HAROON - 7 assessed: 11/18/23 Feeling nervous, anxious, or on edge: 0 = Not at all Not being able to stop or control worryin = Not at all Worrying too much about different things: 0 = Not at all Trouble relaxin = Not at all Being so restless that it is hard to sit still: 1 = Several days Becoming easily annoyed or irritable: 0 = Not at all Feeling afraid as if something awful might happen: 0 = Not at all Total HAROON-7 score (0-4 normal; 5-9 mild; 10-14 moderate; 15-21 severe): 1 Source: Developed by Drs. Yaakov Marti, Dawna Buckley, Virgilio Lepe and colleagues, with an educational pb from [employer]. Review of Systems Const Reports as per HPI Physical exam (Primary Care) Vital Signs: Last Vital Signs Pulse 50 11/18/23 13:53 BP 110/72 11/18/23 13:53 Pulse Ox 98 11/18/23 13:53 Oxygen Delivery Method Room Air 11/18/23 13:53 BMI result Body Mass Index 23.7 Tobacco/Smoking Status: Tobacco use Status Tobacco use date assessed 11/18/23 11/18/23 13:58 Patient Tobacco Use Status Former Tobacco user 11/18/23 13:52 e-Cigarette/Vaping Use Never Used 11/18/23 13:52 PHQ-9: PHQ-9 Score PHQ-9: Total score 0 11/18/23 14:18 Thrive Assessment: Date of Thrive Assessment Date Thrive assessed 11/18/23 11/18/23 14:08 Const General: cooperative Orientation/consciousness: patient oriented x3 Resp Effort & Inspection: normal respiratory effort Auscultation: clear to auscultation bilaterally Cardio Other: difficult to auscultate Rate: regular rate Rhythm: regular rhythm Heart sounds: S1 normal heart sound present and S2 normal heart sound present Neuro General: patient oriented x3 Extrem Other: bilat feet: + sensation with use of monofilament, onychomycosis noted bilat, elongated and disfigured toenails Psych Appearance: grossly normal Mental Status: mental status grossly normal Speech and movement: Normal speech and movement present Affect: normal affect Attitude: cooperative Thought process: Normal thought process present Thought content: Normal thought content present Insight: Good insight present (Psych) Judgement: Good judgement present (Psych) Results AMB Hemoglobin A1c AMB Hemoglobin A1c 6.6 % Last Edit by Brandi Wade CMA on 11/18/23 14:20 Assessment and Plan Assessment & Plan (1) Diabetes: Code(s): E11.9 - Type 2 diabetes mellitus without complications Plan: Labs ordered Plan The patient agreed to the use of a medical authorization specialist for this encounter. Scribed for BASSAM Zhao by Alissa Kent medical authorization specialist, on 11/18/2023 at 14:05 EST. Orders: Orders Complete Blood Count Auto Diff Today E11.9 - Type 2 diabetes mellitus without complications Comprehensive [place]. Panel Fast Today E11.9 - Type 2 diabetes mellitus without complications TSH reflex Free T4 Today E11.9 - Type 2 diabetes mellitus without complications UA CC w/rflx Micro + Cult Today E11.9 - Type 2 diabetes mellitus without complications Lipid Panel Today E11.9 - Type 2 diabetes mellitus without complications AMB Hemoglobin A1c Today E11.9 - Type 2 diabetes mellitus without complications Coding Level of Care Code Est Pt Level 3 (74671) Diagnoses Diabetes E11.9
[2023-11-18 13:53] VITALS: BP 110/72; PULSE 50; O2SAT 98; BMI 23.7
== END 2023-11-18 14:23 | disposition home or self-care (01) ==
PROVIDERS: PCP Nurse Practitioner Family; Visit Provider Nurse Practitioner Family
DX: E11.9 Type 2 diabetes mellitus without complications (principal)
CPT/HCPCS: 83036; 99213

== ENCOUNTER 2024-03-27 14:42 | Outpatient (AMB) | payer MEDICARE, SELFPAY ==
--- NOTE | 2024-03-27 14:45 | MHC.PC.OV ---
Vital Signs 03/27/24 14:47 Height 5 ft 11 in Weight 174 lb BMI 24.3 BP 130/78 Blood Pressure Location Lt brachial Position Sitting Pulse 53 Pulse Source Pulse Oximeter Pulse Oximetry (%) 98 Oxygen Delivery Method Room Air Intake Visit Reasons: 4 Month follow up - see comments Intake Note: Patient here for diabetes f/u Allergies No Known Allergies Allergy (Verified 03/27/24 16:14) Medication List - Last Reconciled 03/27/24 by BASSAM Banda Alcohol Prep Pads (alcohol swabs) topical 3 to 4 times a day; 12 months NS alcohol swabs (Alcohol Prep Pads) 1 pad topical BID 90 days apixaban (Eliquis) 5 mg PO BID aspirin 81 mg PO DAILY atorvastatin 80 mg PO DAILY blood sugar diagnostic (Aqua[employer] Verio test strips) Use to check blood sugar twice daily: fasting blood sugar and random during the day blood-glucose meter ([employer] Verio IQ Meter) Use to check blood sugar twice daily: fasting blood sugar and random during the day furosemide 20 mg PO Q OTHER DAY lancets ([employer] Delica Plus Lancet) USE TO CHECK BLOOD SUGAR TWICE DAILY losartan 12.5 mg PO DAILY metformin ER 500 mg PO BID 90 days metoprolol succinate ER 50 mg PO DAILY Tobacco use date assessed: 11/18/23 Fall risk assessment: No Falls in past year Last assessed Fall Risk: 03/27/24 Dental Screening Dental Screen Date: 11/18/23 HPI 4 Month follow up - see comments HPI Details Pt is a diabetic, on an ARB and a statin. A1C in office today is 6.5. Due for microalbumin, will order. Denies polyuria, polydipsia, and neuropathy. Pt denies any signs and symptoms of hypoglycemia and does know how to correct it. Pt reports that his average blood sugar is 102. Pt follows up with podiatry. Eye exam is scheduled. [facility] Medical History CAD (coronary artery disease) Hypertension Arthritis Left leg injury Surgical History S/P drug eluting coronary stent placement Hx of tonsillectomy Family History Mother Cancer Social History Housing: Apartment Alcohol intake: former Patient Tobacco Use Status: Former Tobacco user Years Smoked: 4 yrs e-Cigarette/Vaping Use: Never Used Second Hand Smoke Exposure: No service: No Current occupational status: retired Cognitive needs: No Hearing needs: No Vision needs: No Questionnaire PHQ-9 Over the last 2 weeks, how often have you been bothered by any of the following problems? 17015 - PHQ-9 Billing: Patient declined-do not bill Source: Developed by Drs. Yaakov Marti, Dawna Buckley, Virgilio Lepe and colleagues, with an educational pb from [employer]. Thrive Questionnaire Date Thrive assessed: 11/18/23 HAROON-7 AMB Questionnaire HAROON-7 Date HAROON - 7 assessed: 11/18/23 Source: Developed by Drs. Yaakov Marti, Dawna Buckley, Virgilio Lepe and colleagues, with an educational pb from [employer]. HAROON-7 Assessment Billing HAROON-7 Assessment Tool: pt declined-do not bill Review of Systems Const Reports as per HPI Physical exam (Primary Care) Vital Signs: Last Vital Signs Pulse 53 03/27/24 14:47 BP 130/78 03/27/24 14:47 Pulse Ox 98 03/27/24 14:47 Oxygen Delivery Method Room Air 03/27/24 14:47 BMI result Body Mass Index 24.3 Tobacco/Smoking Status: Tobacco use Status Tobacco use date assessed 11/18/23 03/27/24 14:46 Patient Tobacco Use Status Former Tobacco user 03/27/24 14:46 e-Cigarette/Vaping Use Never Used 03/27/24 14:46 Thrive Assessment: Date of Thrive Assessment Date Thrive assessed 11/18/23 03/27/24 14:46 Const General: cooperative Orientation/consciousness: patient oriented x3 Resp Effort & Inspection: normal respiratory effort Auscultation: clear to auscultation bilaterally Cardio Rate: regular rate Rhythm: regular rhythm Heart sounds: S1 normal heart sound present and S2 normal heart sound present Neuro General: patient oriented x3 Extrem Other: bilat feet: + sensation with use of monofilament, feet intact, onychomycosis noted bilat, toenails not elongated Psych Appearance: grossly normal Mental Status: mental status grossly normal Speech and movement: Normal speech and movement present Affect: normal affect Attitude: cooperative Thought process: Normal thought process present Thought content: Normal thought content present Insight: Good insight present (Psych) Judgement: Good judgement present (Psych) Results AMB Hemoglobin A1c AMB Hemoglobin A1c 6.5 % Last Edit by CARLOS MANUEL Cade on 03/27/24 15:06 Results Reviewed Results Reviewed: Laboratory Last Values Hgb A1c (Clinic) 6.5 % (4.0-6.0) H 03/27/24 15:05 Assessment and Plan Assessment & Plan (1) Diabetes: Code(s): E11.9 - Type 2 diabetes mellitus without complications Plan: Labs ordered Plan The patient agreed to the use of a medical lab director for this encounter. Scribed for BASSAM Zhao by Alissa Kent medical lab director, on 03/27/2024 at 14:55 EST. Orders: Orders Comprehensive [place]. Panel Fast Today E11.9 - Type 2 diabetes mellitus without complications TSH reflex Free T4 Today E11.9 - Type 2 diabetes mellitus without complications Microalbumin, Random (w Creat) Today E11.9 - Type 2 diabetes mellitus without complications AMB Hemoglobin A1c Today E11.9 - Type 2 diabetes mellitus without complications Complete Blood Count Auto Diff Today E11.9 - Type 2 diabetes mellitus without complications UA CC w/rflx Micro + Cult Today E11.9 - Type 2 diabetes mellitus without complications Lipid Panel Today E11.9 - Type 2 diabetes mellitus without complications Coding Level of Care Code Est Pt Level 3 (54251) Diagnoses Diabetes E11.9
[2024-03-27 14:47] VITALS: BP 130/78; PULSE 53; O2SAT 98; BMI 24.3
== END 2024-03-27 15:10 | disposition home or self-care (01) ==
PROVIDERS: PCP Nurse Practitioner Family; Visit Provider Nurse Practitioner Family
DX: E11.9 Type 2 diabetes mellitus without complications (principal)
CPT/HCPCS: 83036; 99213

== ENCOUNTER 2024-11-02 13:47 | Outpatient (AMB) | payer OTHER, SELFPAY ==
[2024-11-02 13:49] VITALS: BP 112/72; PULSE 60; O2SAT 97; BMI 24.8
--- NOTE | 2024-11-02 13:49 | MHC.PC.OV ---
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 Accompanied by: Self / Same As Patient Allergies No Known Allergies Allergy (Verified 11/02/24 13:49) Medication List - Last Reconciled 11/02/24 by BASSAM Banda Alcohol Prep Pads (alcohol swabs) topical 3 to 4 times a day; 12 months NS alcohol swabs (Alcohol Prep Pads) 1 pad topical BID 90 days apixaban (Eliquis) 5 mg PO BID atorvastatin 80 mg PO DAILY blood sugar diagnostic (FreeStyle Lite Strips) Test blood sugar once a day blood-glucose meter (FreeStyle Lite Meter kit) Test blood sugar once a day furosemide 20 mg PO Q OTHER DAY lancets (FreeStyle Lancets) Test blood sugar once a day lancets ([employer] Delica Plus Lancet) As directed losartan 12.5 mg PO DAILY metformin ER 500 mg PO BID 90 days metoprolol succinate ER 50 mg PO DAILY Tobacco use date assessed: 11/02/24 Fall risk assessment: No Falls in past year Last assessed Fall Risk: 11/02/24 Dental Screening Dental Screen Date: 11/02/24 Did you have a dental visit in the last 12 months?: Yes Did you have a dental problem in the last 6 months where you did not have access to dental care?: No Was dental information given to patient?: Patient has dentist HPI PE HPI Details History of Present Illness The patient is an 79-year-old male presenting with an annual physical examination. He has a past medical history of Diabetes Mellitus, which is currently managed, as evidenced by an HbA1c value of 6.4. The patient denies experiencing any symptoms typically associated with poorly controlled diabetes such as polyuria, polydipsia, or neuropathy. He adheres to regular follow-ups with his slate cutter and business process manager, indicating a proactive approach to managing his diabetes. Furthermore, he consults with an quality control tech raw materials regularly. The patient also has a history of Atrial Fibrillation, characterized by an irregularly irregular heartbeat, for which he is under regular cardiologic care. Onychomycosis is noted, which manifests as fungal infection of the toenails, although he experiences no loss of sensation as positive sensation was confirmed through monofilament testing. 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 health - Vaccination status checked; no details provided about updates Social History Review of Systems - General: Denies polyuria, polydipsia - Neurological: Denies neuropathy symptoms Physical Exam General: Cooperative, healthy appearing, comfortable, no acute distress and well developed Orientation: Patient oriented x3 Limitations: No limitations Head: Normal to inspection Ears: Hearing grossly normal bilaterally, TMs intact Nose: Normal external nose present Face and sinus: Normal facial exam Eyes: Appearance normal, both eyes and all related structures Neck: Normal visual inspection and Yes full ROM Respiratory: Normal respiratory effort and able to speak in complete sentences. Clear to auscultation bilaterally Cardiovascular: Irregularly irregular AFib. Normal S1 and S2 GI: Normal to inspection. Soft to palpation and nontender Skin: No rashes or lesions noted Neuro: Patient oriented x3 Extremities: Normal to inspection. onychomycosis noted to bilaterally. Positive sensation with use of monofilament. Results - Labs: A1c level at 6.4 Plan 1. 4 indicating good control: - Regular cardiology follow-up for Atrial Fibrillation management is recommended to monitor heart rhythm and manage symptoms. - Implementation of care with podiatry for ongoing foot health monitoring is important to prevent complications such as infections. - Maintain regular ophthalmology visits to monitor retinal health due to diabetes and age-related changes. - Evaluate and treat onychomycosis as indicated. Patient was informed and verbally consented to the use of an ambient scribe for clinic note documentation during this visit. Discussion Notes During our discussion, I emphasized the importance of maintaining diabetes control and continuing regular monitoring to manage his A1c levels, acknowledging the current result of 6.4 as satisfactory. We discussed his Atrial Fibrillation, highlighting the significance of ongoing cardiology follow-ups for rhythm assessment and management. I advised on the necessity of maintaining consultations with podiatry and ophthalmology to monitor potential complications from diabetes. Vaccination status was confirmed, with no specifics provided on updates needed. We concluded with an agreement to proceed with the plan outlined and to return as needed for any acute symptoms or regular health maintenance. Patient Instructions - Continue current diabetes management plan and monitor blood sugar levels. - Attend regular follow-ups with your slate cutter and business process manager. - Schedule regular eye exams with your quality control tech raw materials. - Note any changes in symptoms, particularly those related to diabetes or heart health, and report them promptly. - Follow up on treatment for toenail fungus as advised. [facility] Medical History CAD (coronary artery disease) Hypertension Arthritis Left leg injury Surgical History S/P drug eluting coronary stent placement Hx of tonsillectomy Family History Mother Cancer Social History Housing: Apartment Alcohol intake: former Patient Tobacco Use Status: Former Tobacco user Years Smoked: 4 yrs e-Cigarette/Vaping Use: Never Used Second Hand Smoke Exposure: No service: No Current occupational status: retired Cognitive needs: No Hearing needs: No Vision needs: No Questionnaire PHQ-9 Over the last 2 weeks, how often have you been bothered by any of the following problems? 1. Little interest or pleasure in doing things: not at all 2. Feeling down, depressed, or hopeless: not at all 3. Trouble falling or staying asleep, or sleeping too much: not at all 4. Feeling tired or having little energy: not at all 5. Poor appetite or overeating: not at all 6. Feeling bad about yourself - or that you are a failure or have let yourself or your family down: not at all 7. Trouble concentrating on things, such as reading the newspaper or watching television: not at all 8. Moving or speaking so slowly that other people could have noticed. Or the opposite - being so fidgety or restless that you have been moving around a lot more than usual: not at all 9. Thoughts that you would be better off or of hurting yourself in some way: not at all Total score: 0 Depression Screening Interpretation: Negative Depression Screening Done: Yes 23116 - PHQ-9 Billing: Yes Source: Developed by Drs. Yaakov Marti, Dawna Buckley, Virgilio Lepe and colleagues, with an educational pb from [employer]. Thrive Questionnaire Date Thrive assessed: 11/02/24 I am a: Patient What is your living situation today?: I have a steady place to live Within the past 12 months, did the food you bought not last and you didn't have the money to get more?: I choose not to answer this question Within the past 12 months, did you worry whether your food would run out before you got money to buy more?: I choose not to answer this question Do you have trouble paying for medicines?: No Do you have trouble getting transportation to medical appointments?: No Do you have trouble paying your heating and electricity bill?: No Do you have trouble taking care of your child, family member or friend?: No Do you have trouble with day-to-day activities such as bathing, preparing meals, shopping, managing finances, etc.?: No Are you currently unemployed and looking for a job?: No Are you interested in more education?: No Please select the resources that you would like help with: None Currently or been in a relationship where the following occur: I choose not to answer THRIVE Score: 0 AUDIT C Alcohol Use Questionnaire (AUDIT-C) 1. How often do you have a drink containing alcohol?: Never 3. How often do you have six or more drinks on one occasion?: Never Total Score: 0 Score Reviewed/Action Taken: Yes HAROON-7 AMB Questionnaire HAROON-7 Date HAROON - 7 assessed: 11/02/24 Feeling nervous, anxious, or on edge: 0 = Not at all Not being able to stop or control worryin = Not at all Worrying too much about different things: 0 = Not at all Trouble relaxin = Not at all Being so restless that it is hard to sit still: 0 = Not at all Becoming easily annoyed or irritable: 0 = Not at all Feeling afraid as if something awful might happen: 0 = Not at all Total HAROON-7 score (0-4 normal; 5-9 mild; 10-14 moderate; 15-21 severe): 0 Source: Developed by Drs. Yaakov Marti, Dawna Buckley, Virgilio Lepe and colleagues, with an educational pb from [employer]. HAROON-7 Assessment Billing HAROON-7 Assessment Tool: HAROON-7 Assessment 70468 Physical exam (Primary Care) Vital Signs: Last Vital Signs Pulse 60 11/02/24 13:49 BP 112/72 11/02/24 13:49 Pulse Ox 97 11/02/24 13:49 Oxygen Delivery Method Room Air 11/02/24 13:49 BMI result Body Mass Index 24.8 Tobacco/Smoking Status: Tobacco use Status Tobacco use date assessed 11/02/24 11/02/24 13:50 Patient Tobacco Use Status Former Tobacco user 11/02/24 13:50 e-Cigarette/Vaping Use Never Used 11/02/24 13:50 PHQ-9: PHQ-9 Score PHQ-9: Total score 0 11/02/24 14:55 Depression Screening Interpretation: Negative Thrive Assessment: Date of Thrive Assessment Date Thrive assessed 11/02/24 11/02/24 13:50 Currently or been in a relationship where the following occur: I choose not to answer Results AMB Hemoglobin A1c AMB Hemoglobin A1c 6.4 % Last Edit by Tin Redman CMA on 11/02/24 14:29 Results Reviewed Results Reviewed: Laboratory Last Values Hgb A1c (Clinic) 6.4 % (4.0-6.0) H 11/02/24 14:03 Coding Level of Care Code Est Pt Prev Care >65y(80230) Diagnoses Physical exam Z00.00 Diabetes E11.9 Screening PSA (prostate specific antigen) Z12.5 Additional Codes HAROON-7 Assessment Billing - HAROON-7 Assessment Tool: HAROON-7 Assessment 89802 ([id number]) PHQ-9 - 77263 - PHQ-9 Billing: Yes ([id number]) Assessment & Plan Assessment & Plan (1) Physical exam: Code(s): Z00.00 - Encounter for general adult medical examination without abnormal findings Category: Medical (2) Diabetes: Code(s): E11.9 - Type 2 diabetes mellitus without complications Category: Medical (3) Screening PSA (prostate specific antigen): Code(s): Z12.5 - Encounter for screening for malignant neoplasm of prostate Category: Medical Plan . Orders: Orders Complete Blood Count Auto Diff Today E11.9 - Type 2 diabetes mellitus without complications, Z00.00 - Encounter for general adult medical examination without abnormal findings Comprehensive [place]. Panel Fast Today E11.9 - Type 2 diabetes mellitus without complications, Z00.00 - Encounter for general adult medical examination without abnormal findings TSH reflex Free T4 Today E11.9 - Type 2 diabetes mellitus without complications, Z00.00 - Encounter for general adult medical examination without abnormal findings UA CC w/rflx Micro + Cult Today E11.9 - Type 2 diabetes mellitus without complications, Z00.00 - Encounter for general adult medical examination without abnormal findings Prostate Specific Antigen Scr Today Z12.5 - Encounter for screening for malignant neoplasm of prostate AMB Hemoglobin A1c Today Z13.9 - Encounter for screening, unspecified Lipid Panel Today E11.9 - Type 2 diabetes mellitus without complications, Z00.00 - Encounter for general adult medical examination without abnormal findings
== END 2024-11-02 15:00 | disposition home or self-care (01) ==
PROVIDERS: PCP Nurse Practitioner Family; Visit Provider Nurse Practitioner Family
DX: Z00.00 Encounter for general adult medical examination without abnormal findings (principal); E11.9 Type 2 diabetes mellitus without complications; Z12.5 Encounter for screening for malignant neoplasm of prostate; Z13.9 Encounter for screening, unspecified

== ENCOUNTER → 2024-11-02 13:47 | Outpatient (BNVA) | payer MEDICARE, SELFPAY | PROVIDERS: PCP Nurse Practitioner Family; Visit Provider Nurse Practitioner Family | DX: Z00.00 Encounter for general adult medical examination without abnormal findings (principal); E11.9 Type 2 diabetes mellitus without complications; I48.91 Unspecified atrial fibrillation; Z12.5 Encounter for screening for malignant neoplasm of prostate | CPT/HCPCS: 83036; 96127 ==

== ENCOUNTER 2025-04-10 06:01 | Outpatient (REF) | payer MEDICARE, MEDICAID, SELFPAY ==
--- OUTSIDE RECORDS SUMMARY | 2025-04-10 06:04 | XMS_ITS ---
Author Organization [facility] Address [address] [place] [address] Care Team Providers Care Granite Worker Name Role Phone Derian FONSECA, Byron Primary Care Provider Unav ailable Heaven Joshua [phone] Encounters Encounter Location Date Provider Diagnosis [address] [address] 04/03/2025 Heaven Joshua Plan Of Treatment Next Appt Details Provider Name:Heaven weeks, 06/20/2025 03:15:00 PM, [address] [place] [address], [address], Progress Notes * TAMIKO JefferythomasDOB:[birth year] (79 yo M)Acc No.[id number]:04/03/2025 Progress Note Patient:?Mckay MORRISON Provider:?Heaven Joshua DPM :1945???Age:79 Y???Sex:Male Tyr[place] e:04/03/2025 Address[facility] [place] [place] Pcp:MARIAN Zhao Subjective: * Chief Complaints: * ??? * Medical History:? Objective: * Vitals:? Assessment: Plan: * Treatment: * Images: * The named appointment provid er may or may not be the originator of this progress note, and it is not deemed complete until electronically signed by the appointment provider. Sign off status: Pending * Provider:?Heaven Joshua DPM Date:?07/2025 Generated for Tracy yang/Letty/Tevin on:?04/10/2025 06:03 AM EDT
[2025-04-10 10:21] LABS: MANUAL DIFF FLAG NO
[2025-04-10 10:27] LABS: Basophils Percent Auto 0.5 % (0-2); Eosinophils Absolute Auto 0.1 X10*3/uL (0.0-0.4); Eosinophils Percent Auto 1.1 % (0-4); Hemoglobin 13.8 g/dl (14.0-18.0); Imm Gran Abs Auto 0.02 X10*3/uL (0.00-0.03); Imm Gran Pct Auto 0.3 % (0.0-0.4); Lymphocytes Absolute Auto 0.9 X10*3/uL (1.2-4.9); Lymphocytes Percent Auto 14.4 % (20-40); Mean Corpuscular HGB Conc 32.1 g/dl (31.0-36.0); Mean Corpuscular Hemoglobin 32.8 pg (27.0-33.0); Mean Corpuscular Volume 102.1 fL (80.0-98.0); Mean Platelet Volume 12.2 fL (9.4-12.4); Monocytes Absolute Auto 1.1 X10*3/uL (0.1-1.2); Monocytes Percent Auto 16.5 % (2-11); Neutrophils Absolute Auto 4.3 x10*3/uL (2.0-8.3); Neutrophils Percent Auto 67.2 % (45-73); Platelet Count 190 X10*3/uL (160-400); Red Blood Count 4.21 X10*6/uL (4.60-5.80); White Blood Count 6.4 X10*3/uL (4.8-10.8)
[2025-04-10 10:30] LABS: Appearance Urine Clear; Color Urine Dark Yellow; Glucose Urine UA 100 mg/dL (Negative); Leukocyte Esterase Urine Small (1+) (Negative); Nitrite Urine Negative (Negative); PH 5.5 (5.0-9.0); Specific Gravity - Urine 1.025 (1.005-1.025); UMIC TRIGGER UACC YES; Urine Blood Negative (Negative); Urine Ketones Trace mg/dL (Negative); Urine Protein Trace mg/dL (Neg-Trace)
[2025-04-10 10:49] LABS: Bacteria Urine None Seen (None Seen); Hyaline Casts Urine 0-2 /LPF (0-2); RBC Urine 0-2 /HPF (0-2); Squamous Epithelial Cell Urine 0-2 /HPF (0-2); UACC Culture Trigger YES; WBC Urine 0-5 /HPF (0-5)
[2025-04-10 11:04] LABS: Alanine Aminotransferase 12 U/L (0-40); Albumin Level 4.1 g/dL (3.5-5.0); Alkaline Phosphatase 71 U/L (39-117); Anion Gap 11 (12-20); Aspartate Amino Transferase 27 U/L (5-37); Bilirubin Total 1.1 mg/dL (0.0-1.0); Blood Urea Nitrogen 18 mg/dL (9-16); Carbon Dioxide 28 mmol/L (22-29); Chloride 102 mmol/L (96-108); Cholesterol 116 mg/dL (<200); Estimated Glomerular Filt Rate > 60; Glucose Fasting 118 mg/dL (60-99); HDL Cholesterol 45 mg/dL (>40); LDL Cholesterol Calculated 58 mg/dL (<100); Potassium 4.3 mmol/L (3.3-5.1); Sodium 137 mmol/L (135-145); Total Protein 7.1 g/dL (6.5-8.0); Triglycerides 65 mg/dL (<150)
[2025-04-10 11:10] LABS: Prostate Specific Antigen Scr 1.48 ng/mL (<0.05-4.0)
[2025-04-10 11:22] LABS: TSH reflex Free T4 7.67 uIU/mL (0.32-4.0)
[2025-04-10 12:03] LABS: Free T4 (Free Thyroxine) 1.04 ng/dL (0.71-1.85)
== END 2025-04-10 06:02 | disposition home or self-care (01) ==
LOC: HO.HMGCLDS 06:01
PROVIDERS: PCP Nurse Practitioner Family; Visit Provider Nurse Practitioner Family
DX: Z00.00 Encounter for general adult medical examination without abnormal findings (principal); E11.9 Type 2 diabetes mellitus without complications; Z12.5 Encounter for screening for malignant neoplasm of prostate; R82.90 Unspecified abnormal findings in urine
CPT/HCPCS: 36415; 80053; 80061; 81001; 84153; 84439; 84443; 85025; 87086

== ENCOUNTER 2025-04-13 06:03 | Outpatient (REF) | payer MEDICARE, MEDICAID, SELFPAY ==
--- OUTSIDE RECORDS SUMMARY | 2025-04-03 10:30 | XMS_ITS ---
Author Organization [facility] Address [address] [place] [address] Care Team Providers Care Precision Aircraft Structure Assembler Name Role Phone Derian FONSECA, Byron Primary Care Provider Unav ailable Heaven Joshua [phone] Encounters Encounter Location Date Provider Diagnosis [address] [address] 04/03/2025 Heaven Joshua Plan Of Treatment Next Appt Details Provider Name:Heaven weeks, 06/20/2025 03:15:00 PM, [address] [place], [address], Progress Notes * MAGGIEMckay RAMIREZDOB:[birth year] (79 yo M)Acc No.[id number]:04/03/2025 Progress Note Patient: Mckay HANDY Provider: Sahil Joshua DPM :1945 A ge:79 Y S ex:Male Date:04/03/2025 [facility] [facility] Pcp:MARIAN Zhao Subjective: * Chief Complaints: * [...] 04/03/2025 Generated for Tracy yang/Letty/Tevin on: 0 04/13/2025 06:05 AM EDT
[2025-04-13 10:58] LABS: TSH reflex Free T4 5.43 uIU/mL (0.32-4.0)
[2025-04-13 11:59] LABS: Free T4 (Free Thyroxine) 1.04 ng/dL (0.71-1.85)
[2025-04-16 18:54] LABS: Thyroid Peroxidase Antibodies 1 IU/mL (<9)
== END 2025-04-13 06:04 | disposition home or self-care (01) ==
LOC: HO.HMGCLDS 06:03
PROVIDERS: PCP Nurse Practitioner Family; Visit Provider Nurse Practitioner Family
DX: R79.89 Other specified abnormal findings of blood chemistry (principal)
CPT/HCPCS: 36415; 84439; 84443; 86376

== ENCOUNTER 2025-05-12 08:15 | Outpatient (REF) | payer MEDICARE, MEDICAID, SELFPAY ==
--- OUTSIDE RECORDS SUMMARY | 2025-04-03 10:30 | XMS_ITS ---
Author Organization [facility] Address [address] [place] [address] Care Team Providers Care College Dean Name Role Phone Derian FONSECA, Byron Primary Care Provider Unav ailable Heaven Joshua [phone] Encounters Encounter Location Date Provider Diagnosis [address] [address] 04/03/2025 Heaven Joshua Plan Of Treatment Next Appt Details Provider Name:Heaven weeks, 06/20/2025 03:15:00 PM, [address] [place], [address], Progress Notes * MAGGIEMckay SCHULTZDOB:[birth year] (79 yo M)Acc No.[id number]:04/03/2025 Progress Note Patient: Mckay HANDY Provider: Sahil Joshua DPM :1945 A ge:79 Y S ex:Male Date:04/03/2025 [facility] [facility] Pcp:MARIAN Zhao Subjective: * Chief Complaints: * [...] 04/03/2025 Generated for Tracy yang/Letty/Tevin on: 0 05/12/2025 08:17 AM EDT
--- OUTSIDE RECORDS SUMMARY | 2025-05-12 08:18 | XMS_ITS | Clinical Summary ---
Author Organization [address] [address] Phone Care Team Providers Care Director Of Cardiology Service Line Name Role Phone Byron Menard NP Primary Care Provider + Allergies No known active allergies Medications aspirin chewable tablet Take 81 mg by mouth daily.. Active atorvastatin (LIPITOR) 80 MG tablet Take 1 tablet (80 mg total) by mouth daily.. 30 tablet 1 12/18/2017 Active metoprolol tartrate (LOPRESSOR) 25 MG Immediate Release tablet Take 0.5 tablets (12.5 mg total) by mouth 2 (two) times daily.. 30 tablet 1 12/18/2017 Active ticagrelor (BRILINTA) 90 mg Tab Take 1 tablet (90 mg total) by mouth 2 (two) times daily.. 60 tablet 1 12/18/2017 Active metoprolol tartrate (LOPRESSOR) 25 MG Immediate Release tablet Take 0.5 tablets (12.5 mg total) by mouth 2 (two) times daily.. 10 tablet 12/18/2017 Active atorvastatin (LIPITOR) 80 MG tablet Take 1 tablet (80 mg total) by mouth daily.. 5 tablet 12/18/2017 Active Active Problems Problem Noted Date Diagnosed Date Inverted T wave 12/15/2017 Syncope and collapse 12/14/2017 Lactic acidosis 12/14/2017 Elevated BP without diagnosis of hypertension Family History Medical History Relation Name Comments Cancer Maternal Uncle Cancer Mother Relation Name Status Comments Father Maternal Uncle Mother Sister (Age 2 weeks old) Social History Tobacco Use Types Packs/Day Years Used Date Smoking Tobacco: Former Cigarettes Q uit: 10/25/1975 Smokeless Tobacco: Never Alcohol Use Standard Drinks/Week Comments No 0 (1 standard drink = 0.6 oz pur e alcohol) Stopped drinking 1975 Sex and Gender Information Value Date Recorded Sex Assigned at Not on file Legal Sex Male 8:36 AM EST Gender Identity Not on file Sexual Orientation Not on file Last Filed Vital Signs Vital Sign Reading Time Taken Comments Blood Pressure 146/68 12/18/2017 7:30 AM EST Pulse 75 12/18/2017 7:30 AM EST Temperature 36.4 C (97.5 F) 12/18/2017 7:30 AM EST Respiratory Rate 18 12/18/2017 7:30 AM EST Oxygen Saturation 98% 12/18/2017 7:30 AM EST Inhaled Oxygen Concentration - - Weight 95.3 kg (210 lb 3.2 oz) 12/16/2017 8:00 A M EST Height 180.3 cm (5' 11 ) 12/15/2017 6:00 PM EST Body Mass Index 29.32 12/15/2017 6:00 PM EST Plan of Treatment Health Maintenance Due Date Last Done Comments HIV screening 1958 Tetanus adult (Td q 10,TDAP once) 1963 Pneumococcal Vaccine (50+ years) (1 of 1 - PCV) 1993 Shingles vaccine (Shingrix) (1 of 2 - Shingrix (RZV) 2 Dose Standard Series) 1993 RSV Immunization (1 - 1-dose 75+ series) 2018 Diabetes screening 12/18/2020 12/18/2017, 0 12/17/2017, 12/15/2017, Additional history exists Lipid disorder screening 12/15/2022 12/15/2017 Covid-19 vaccine series ( - season) 2024 Influenza vaccine 06/25/2025 Colon cancer screening, Colonoscopy Discontinued Meningococcal Vaccine Aged Out No shannon erick eligible based on patient's age to complete this topic Medical Devices Implanted Type Area Slab Polisher Device Identifier Shelf Expiration Date Model / Serial / Lot Stent Synergy (Mr) [id number] - [id number] Implanted: by Eloy Madden MD at [address] (Quantity not on file) Other-im plant Left: Coronary [employer] (BOS-ZZZZ) 09/06/2018 [id number] / / [id number] Stent Synergy (Mr) [id number] - [id number] Implanted: by Eloy Madden MD at [address] (Quantity not on file) Other-im plant Left: Coronary [employer] ([employer]-ZZZZ) 09/15/2018 [id number] / / [id number] Stent Synergy (Mr) [id number] - [id number] Implanted: by Eloy Madden MD at [address] (Quantity not on file) Other-im plant Left: Coronary [employer] ([employer]) 09/15/2018 [id number] / / [id number] Procedures Procedure Name Priority Date/Time Associated Diagnosis Comments BASIC METABOLIC PANEL Timed 12/18/2017 4:11 AM EST LIPID PANEL Add-On 12/15/2017 4:33 AM EST from Last 3 Months or Most Recently Relevant to Health Maintenance Results * (ABNORMAL) Basic metabolic panel (12/18/2017 4:11 AM EST) Sodium 138 137 - 145 mmol/L 12/18/2017 4:39 AM [facility] Potassium 4.0 3.5 - 5.1 mmol/L 12/18/2017 4:39 AM [facility] Chloride 103 98 - 107 mmol/L 12/18/2017 4:39 AM [facility] CO2 25 22 - 30 mmol/L 12/18/2017 4:39 AM [facility] Anion Gap 10 7 - 16 12/18/2017 4:39 AM [facility] Glucose 121(H) 70 - 100 mg/dL 12/18/2017 4:39 AM [facility] BUN 20 9 - 20 mg/dL 12/18/2017 4:39 AM [facility] Creatinine 0.76 0.66 - 1.25 mg/dL 12/18/2017 4:39 AM [facility] Calcium 8.8 8.4 - 10.2 mg/dL 12/18/2017 4:39 AM [facility] BUN/Creatinine Ratio 26.3 12/18/2017 4:39 AM [facility] eGFR (Afr Amer) >60 >60 mL/min/1.7 3m2 12/18/2017 4:39 AM [facility] Comment: Values under 60mL/min/1.73m2 may indicate CKD if noted for more than 3 months. eGFR is only valid if creatinine is at steady state. eGFR (NON -Amarilys n) >60 >60 mL/min/1.7 3m2 12/18/2017 4:39 AM [facility] Comment: Values under 60mL/min/1.73m2 may indicate CKD if noted for more than 3 months. eGFR is only valid if creatinine is at steady state. Blood specimen (specimen) Venipuncture / Unknown 12/18/2017 4:11 AM EST 12/18/2017 4:18 AM [facility] - 12/18/2017 4:39 AM EST $11.54 Angus Cazares Jr., MD LAB BLOOD ORDERABLES Fi nal Result [facility] [address] [place] [address] * (ABNORMAL) Lipid panel (12/15/2017 4:33 AM EST) Cholesterol 187 0 - 199 mg/dL 12/16/2017 4:31 PM [facility] HDL 36(L) >=41 mg/dL 12/16/2017 4:31 PM [facility] Triglycerides 177(H) 0 - 150 mg/dL 12/16/2017 4:31 PM [facility] Chol/HDL Ratio 5.2 12/16/2017 4:31 PM [facility] LDL Calculated 116(H) 0 - 100 mg/dL 12/16/2017 4:31 PM [facility] Blood specimen (specimen) Venipuncture / Unknown 12/15/2017 4:33 AM EST 12/15/2017 4:40 AM EST [facility] - 12/16/2017 4:31 PM EST $18.27 us Angus Cazares Jr., MD LAB BLOOD ORDERABLES Fi nal Result [facility] [address] [place] [address], [facility] [phone] from Last 3 Months or Most Recently Relevant to Health Maintenance Insurance D D Advance Directives * Full ACLS (Latest Code Status on File) Date Activated Date Inactivated Comments 12/14/2017 11:24 AM 12/18/2017 1:53 PM Care Teams Director Of Cardiology Service Line Relationship Specialty Start Date End Date Byron Menard NP [facility] [place] [phone] PCP - General 12/14/17
[2025-05-12 11:31] LABS: Reticulocytes Absolute 0.056 X10*6/uL (0.026-0.095)
[2025-05-12 11:38] LABS: Iron 106 mcg/dL (45-160); Percent Iron Saturation 40 % (15-50); Total Iron Binding Capacity 263 mcg/dL (228-428); Unsaturated Iron Binding 157 ug/dL
[2025-05-12 11:54] LABS: Ferritin 148 ng/mL (20-250)
[2025-05-12 12:07] LABS: Folate 8.4 ng/mL (> or = 4.0); Vitamin B12 281 pg/mL (200-900)
== END 2025-05-12 08:16 | disposition home or self-care (01) ==
LOC: HO.HMGCLDS 08:15
PROVIDERS: PCP Nurse Practitioner Family; Visit Provider Nurse Practitioner Family
DX: D64.9 Anemia, unspecified (principal)
CPT/HCPCS: 36415; 82607; 82728; 82746; 83540; 83615; 85045

== ENCOUNTER 2025-05-15 06:15 | Outpatient (REF) | payer MEDICARE, MEDICAID, SELFPAY ==
[2025-05-15 10:19] LABS: Appearance Urine Clear; Glucose Urine UA Negative (Negative); PH 6.0 (5.0-9.0); Specific Gravity - Urine 1.010 (1.005-1.025)
== END 2025-05-15 06:16 | disposition home or self-care (01) ==
LOC: HO.HMGCLNP 06:15
PROVIDERS: PCP Nurse Practitioner Family; Visit Provider Nurse Practitioner Family
DX: Z00.00 Encounter for general adult medical examination without abnormal findings (principal); E11.9 Type 2 diabetes mellitus without complications
CPT/HCPCS: 81003

== ENCOUNTER 2025-05-21 10:14 | Outpatient (AMB) | payer OTHER, MEDICAID, SELFPAY ==
--- OUTSIDE RECORDS SUMMARY | 2025-04-03 10:30 | XMS_ITS ---
Author Organization [facility] Address [address] [place] [address] Care Team Providers Care Art Department Head Name Role Phone Derian FONSECA, Byron Primary Care Provider Unav ailable Heaven Joshua [phone] Encounters Encounter Location Date Provider Diagnosis [address] [address] 04/03/2025 Heaven Joshua Plan Of Treatment Next Appt Details Provider Name:Heaven weeks, 06/20/2025 03:15:00 PM, [address] [place], [address], Progress Notes * MAGGIEMckay SCHULTZDOB:[birth year] (79 yo M)Acc No.[id number]:04/03/2025 Progress Note Patient: Mckay HANDY Provider: Sahil Joshua DPM :1945 A ge:79 Y S ex:Male Date:04/03/2025 Address:[address] [facility] [address] Mor[address] [facility] Pcp:MARIAN Zhao Subjective: * Chief Complaints: * * Medical History: Objective: * Vitals: Assessment: Plan: * Treatment: * Images: * The named appointment provid er may or may not be the originator of this progress note, and it is not deemed complete until electronically signed by the appointment provider. Sign off status: Pending * Provider: Sahil Joshua, DPTwin Date: 0 04/03/2025 Generated for Tracy yang/Letty/Tevin on: 0 05/21/2025 11:17 AM EDT
--- NOTE | 2025-05-21 10:18 | MHC.PC.OV ---
Vital Signs 05/21/25 10:20 Height 5 ft 11 in Weight 155 lb BMI 21.6 BP 120/78 Blood Pressure Location Rt brachial Position Sitting Respiration 16 Pulse 50 Pulse Source Pulse Oximeter Temp 97.7 F Temp Source Oral Pulse Oximetry (%) 94 Oxygen Delivery Method Room Air Intake Visit Reasons: 6 month follow up Director Of Safety Required: No Accompanied by: Self / Same As Patient Allergies No Known Allergies Allergy (Verified 05/21/25 10:18) Tobacco use date assessed: 05/21/25 Fall risk assessment: No Falls in past year Last assessed Fall Risk: 05/21/25 Dental Screening Dental Screen Date: 05/21/25 Did you have a dental visit in the last 12 months?: Yes Did you have a dental problem in the last 6 months where you did not have access to dental care?: No Was dental information given to patient?: Patient has dentist HPI 6 month follow up HPI Details Chief Complaint The patient presents for routine management of diabetes and atrial fibrillation. History of Present Illness The patient is an 79-year-old male presenting for a routine check-up and management of chronic conditions. His Type 2 Diabetes Mellitus is currently well-managed with an A1c of 6.3, indicating good glycemic control. The patient has a history of onychomycosis, with elongated toenails noted during the examination. He regularly visits a seed corn manager production for management of his toenail condition. The patient also has a history of atrial fibrillation, for which he is under the care of a potato chip packaging machine operator. During the examination, an irregularly irregular heart rhythm was noted. Preventative care measures include yearly eye exams, which were reinforced during the visit. denies any CP, SOB, polyuria, polydipsia, neuropathy. Social History Health Maintenance - Yearly eye exams recommended for diabetes management Review of Systems Physical Exam General: Cooperative, healthy appearing, comfortable, no acute distress and well developed Orientation: Patient oriented x3 Limitations: No limitations Head: Normal to inspection Ears: Hearing grossly normal bilaterally Nose: Normal external nose present Face and sinus: Normal facial exam Eyes: Reinforced the importance of yearly eye exams Neck: Normal visual inspection and Yes full ROM Respiratory: Lungs were diminished on moving air bilaterally Cardiovascular: Irregularly irregular (a fib) GI: Normal to inspection. Soft to palpation and nontender Skin: No rashes or lesions noted Neuro: Patient oriented x3 Extremities: Positive sensation use of monofilament. Elongated toenails with onychomycosis noted to toenails. Otherwise, feet were intact. Results - Labs: Hemoglobin A1c at 6.3% Plan The patient's Type 2 Diabetes Mellitus is well-controlled with an A1c of 6.3, and continued monitoring of blood glucose levels is advised. Regular podiatry visits are recommended for the management of onychomycosis. The patient should continue follow-up with his potato chip packaging machine operator for atrial fibrillation management. Yearly eye exams are emphasized as part of his diabetes management plan. [facility] Medical History CAD (coronary artery disease) Hypertension Arthritis Left leg injury Surgical History S/P drug eluting coronary stent placement Hx of tonsillectomy Family History Mother Cancer Social History Housing: Apartment Alcohol intake: former Patient Tobacco Use Status: Former Tobacco user Years Smoked: 4 yrs e-Cigarette/Vaping Use: Never Used Second Hand Smoke Exposure: No service: No Current occupational status: retired Cognitive needs: No Hearing needs: No Vision needs: No Questionnaire PHQ-9 Over the last 2 weeks, how often have you been bothered by any of the following problems? 1. Little interest or pleasure in doing things: not at all 2. Feeling down, depressed, or hopeless: not at all 3. Trouble falling or staying asleep, or sleeping too much: not at all 4. Feeling tired or having little energy: not at all 5. Poor appetite or overeating: not at all 6. Feeling bad about yourself - or that you are a failure or have let yourself or your family down: not at all 7. Trouble concentrating on things, such as reading the newspaper or watching television: not at all 8. Moving or speaking so slowly that other people could have noticed. Or the opposite - being so fidgety or restless that you have been moving around a lot more than usual: not at all 9. Thoughts that you would be better off or of hurting yourself in some way: not at all Total score: 0 Depression Screening Interpretation: Negative Depression Screening Done: Yes 23515 - PHQ-9 Billing: Yes Source: Developed by Drs. Yaakov Marti, Dawna Buckley, Virgilio Lepe and colleagues, with an educational pb from [employer]. Thrive Questionnaire Date Thrive assessed: 11/02/24 I am a: Patient What is your living situation today?: I have a steady place to live Within the past 12 months, did the food you bought not last and you didn't have the money to get more?: I choose not to answer this question Within the past 12 months, did you worry whether your food would run out before you got money to buy more?: I choose not to answer this question Do you have trouble paying for medicines?: No Do you have trouble getting transportation to medical appointments?: No Do you have trouble paying your heating and electricity bill?: No Do you have trouble taking care of your child, family member or friend?: No Do you have trouble with day-to-day activities such as bathing, preparing meals, shopping, managing finances, etc.?: No Are you currently unemployed and looking for a job?: No Are you interested in more education?: No Please select the resources that you would like help with: None Currently or been in a relationship where the following occur: I choose not to answer THRIVE Score: 0 AUDIT C Alcohol Use Questionnaire (AUDIT-C) 3. How often do you have six or more drinks on one occasion?: Never Total Score: 0 HAROON-7 AMB Questionnaire HAROON-7 Date HAROON - 7 assessed: 05/21/25 Feeling nervous, anxious, or on edge: 0 = Not at all Not being able to stop or control worryin = Not at all Worrying too much about different things: 0 = Not at all Trouble relaxin = Not at all Being so restless that it is hard to sit still: 0 = Not at all Becoming easily annoyed or irritable: 0 = Not at all Feeling afraid as if something awful might happen: 0 = Not at all Total HAROON-7 score (0-4 normal; 5-9 mild; 10-14 moderate; 15-21 severe): 0 Source: Developed by Dawna Zuñiga Kurt Kroenke and colleagues, with an educational pb from [employer]. HAROON-7 Assessment Billing HAROON-7 Assessment Tool: HAROON-7 Assessment 59855 Physical exam (Primary Care) Vital Signs: Last Vital Signs Temp 97.7 F 05/21/25 10:20 Pulse 50 05/21/25 10:20 Resp 16 05/21/25 10:20 BP 120/78 05/21/25 10:20 Pulse Ox 94 05/21/25 10:20 Oxygen Delivery Method Room Air 05/21/25 10:20 BMI result Body Mass Index 21.6 Tobacco/Smoking Status: Tobacco use Status Tobacco use date assessed 05/21/25 05/21/25 10:27 Patient Tobacco Use Status Former Tobacco user 05/21/25 10:19 e-Cigarette/Vaping Use Never Used 05/21/25 10:19 PHQ-9: PHQ-9 Score PHQ-9: Total score 0 05/21/25 10:27 Depression Screening Interpretation: Negative Thrive Assessment: Date of Thrive Assessment Date Thrive assessed 11/02/24 05/21/25 10:19 Currently or been in a relationship where the following occur: I choose not to answer Results AMB Hemoglobin A1c AMB Hemoglobin A1c 6.3 % Last Edit by Alona Steen MA on 05/21/25 10:47 Results Reviewed Results Reviewed: Laboratory Last Values Hgb A1c (Clinic) 6.3 % (4.0-6.0) H 05/21/25 10:33 Coding Level of Care Code Est Pt Level 3 (70963) Diagnoses Diabetes E11.9 Additional Codes HAROON-7 Assessment Billing - HAROON-7 Assessment Tool: HAROON-7 Assessment 36973 ([id number]) PHQ-9 - 66761 - PHQ-9 Billing: Yes ([id number]) Assessment & Plan Assessment & Plan (1) Diabetes: Code(s): E11.9 - Type 2 diabetes mellitus without complications Category: Medical Plan . Orders: Orders AMB Hemoglobin A1c Today Z13.9 - Encounter for screening, unspecified Comprehensive [place]. Panel Fast Today E11.9 - Type 2 diabetes mellitus without complications TSH reflex Free T4 Today E11.9 - Type 2 diabetes mellitus without complications UA CC w/rflx Micro + Cult Today E11.9 - Type 2 diabetes mellitus without complications Complete Blood Count Auto Diff Today E11.9 - Type 2 diabetes mellitus without complications Lipid Panel Today E11.9 - Type 2 diabetes mellitus without complications
[2025-05-21 10:20] VITALS: BP 120/78; PULSE 50; RESP 16; TEMP 36.5; O2SAT 94; BMI 21.6
--- OUTSIDE RECORDS SUMMARY | 2025-05-21 11:17 | XMS_ITS | Clinical Summary ---
Author Organization [address] [address] Phone Care Team Providers Care Retort Feeder [employer] Name Role Phone Byron Menard NP Primary [...] this topic Medical Devices Implanted Type Area Trimming Machine Operator Device Identifier Shelf Expiration Date Model / Serial / Lot Stent Synergy (Mr) [id number] - [id number] Implanted: by Eloy Madden MD at [address] (Quantity not on file) Other-im plant Left: Coronary [employer] ([employer]) 09/06/2018 [id number] / / [id number] Stent Synergy (Mr) [id number] - [id number] Implanted: by Eloy Madden MD at [address] (Quantity not on file) Other-im plant Left: Coronary [employer] ([id number]) 09/15/2018 [id number] / / [id number] Stent Synergy (Mr) [id number] - [id number] Implanted: by Eloy Madden MD at [address] (Quantity not on file) Other-im plant Left: Coronary [employer] ([id number]) 09/15/2018 [id number] / / [id number] Procedures Procedure Name Priority Date/Time Associated Diagnosis Comments BASIC METABOLIC PANEL Timed 12/18/2017 4:11 AM EST LIPID PANEL Add-On 12/15/2017 4:33 AM EST from Last 3 Months or Most Recently Relevant to Health Maintenance Results * (ABNORMAL) Basic metabolic panel (12/18/2017 4:11 AM EST) Sodium 138 137 - 145 mmol/L 12/18/2017 4:39 AM [facility] Potassium 4.0 3.5 - 5.1 mmol/L 12/18/2017 4:39 AM [facility] Chloride 103 98 - 107 mmol/L 12/18/2017 4:39 AM [facility] CO2 25 22 - 30 mmol/L 12/18/2017 4:39 AM [facility] Anion Gap 10 7 - 16 12/18/2017 4:39 AM [facility] Glucose 121(H) 70 - 100 mg/dL 12/18/2017 4:39 AM [facility] BUN 20 9 - 20 mg/dL 12/18/2017 4:39 AM [facility] Creatinine 0.76 0.66 - 1.25 mg/dL 12/18/2017 4:39 AM [facility] Calcium 8.8 8.4 - 10.2 mg/dL 12/18/2017 4:39 AM [facility] BUN/Creatinine Ratio 26.3 12/18/2017 4:39 AM [facility] eGFR (Afr Amer) >60 >60 mL/min/1.7 3m2 12/18/2017 4:39 AM [facility] Comment: Values under 60mL/min/1.73m2 may indicate CKD if noted for more than 3 months. eGFR is only valid if creatinine is at steady state. eGFR (NON -Amarilys n) >60 >60 mL/min/1.7 3m2 12/18/2017 4:39 AM [facility] Comment: Values under 60mL/min/1.73m2 may indicate CKD if noted for more than 3 months. eGFR is only valid if creatinine is at steady state. Blood specimen (specimen) Venipuncture / Unknown 12/18/2017 4:11 AM EST 12/18/2017 4:18 AM [facility] - 12/18/2017 4:39 AM EST $11.54 Angus Cazares Jr., MD LAB BLOOD ORDERABLES Fi nal Result [facility] [address] [place] [address] * (ABNORMAL) Lipid panel (12/15/2017 4:33 AM EST) Cholesterol 187 0 - 199 mg/dL 12/16/2017 4:31 PM [facility] HDL 36(L) >=41 mg/dL 12/16/2017 4:31 PM [facility] Triglycerides 177(H) 0 - 150 mg/dL 12/16/2017 4:31 PM [facility] Chol/HDL Ratio 5.2 12/16/2017 4:31 PM [facility] LDL Calculated 116(H) 0 - 100 mg/dL 12/16/2017 4:31 PM [facility] Blood specimen (specimen) Venipuncture / Unknown 12/15/2017 4:33 AM EST 12/15/2017 4:40 AM EST [facility] - 12/16/2017 4:31 PM EST $18.27 us Angus Cazares Jr., MD LAB BLOOD ORDERABLES Fi nal Result [facility] [address] [place] [address], [facility] [phone] from Last 3 Months or Most Recently Relevant to Health Maintenance Insurance D D Advance Directives * Full ACLS (Latest Code Status on File) Date Activated Date Inactivated Comments 12/14/2017 11:24 AM 12/18/2017 1:53 PM Care Teams Retort Feeder Ground Bone Relationship Specialty Start Date End Date Byron Menard NP [facility] [place] [phone] PCP - General 12/14/17
== END 2025-05-21 10:57 | disposition home or self-care (01) ==
LOC: HO.HMCC 10:15
PROVIDERS: PCP Nurse Practitioner Family; Visit Provider Nurse Practitioner Family
DX: E11.9 Type 2 diabetes mellitus without complications (principal); Z13.9 Encounter for screening, unspecified

== ENCOUNTER → 2025-05-21 10:14 | Outpatient (BNVA) | payer OTHER, SELFPAY | PROVIDERS: PCP Nurse Practitioner Family; Visit Provider Nurse Practitioner Family | DX: E11.9 Type 2 diabetes mellitus without complications (principal); I48.91 Unspecified atrial fibrillation; B35.1 Tinea unguium | CPT/HCPCS: 83036; 96127 ==